=== PATIENT | female | born 1945 | race Caucasian/White ===

== ENCOUNTER 2019-02-19 22:39 | Inpatient (IN) | payer MEDICARE, OTHER, BC ==
[2019-02-19] MEDS ORDERED: Zofran 4 MG/2 ML VIAL IV ONE (22:53)
[2019-02-19] MEDS ORDERED: Sodium Chloride 0.9% 1000 ML 1,000 ML IV STA (22:53)
[2019-02-19] MEDS ORDERED: Zofran 4 MG/2 ML VIAL ONE (23:03)
[2019-02-19] MEDS ORDERED: Sodium Chloride 0.9% 1000 ML 1,000 ML ONE (23:03)
[2019-02-19 23:24] LABS: BASOPHIL % 0.2 % (0.0-0.4); Basophil (Absolute #) 0.02 (0-0.4); Eosinophil % 0.4 % (0.00-5.0); Eosinophil (Absolute #) 0.03 (0-0.5); Granulocyte Absolute (ANC) 6.91 (1.4-6.9); Granulocytes % 83.4 % (36.0-66.0); Hematocrit 45.5 % (35-47); Hemoglobin 15.2 gm/dl (12.0-16.0); Lymphocyte (Absolute #) 0.89 (1.0-4.6); Lymphocytes % 10.7 % (24.0-44.0); Mean Cell Volume 89.9 fl (78-100); Mean Corpuscular Hgb Concent. 33.4 g/dl (32-36); Mean Platelet Volume 9.4 fl (6-9.5); Monocyte (Absolute #) 0.44 (0.0-1.3); Monocytes % 5.3 % (0.0-12.0); Platelet Count 224 K/mm3 (150-450); Red Blood Count 5.06 M/mm3 (4.1-5.4); Red Cell Distribution Width 13.7 % (11.5-14.0); White Blood Count 8.3 K/mm3 (4.0-10.5)
[2019-02-19 23:35] LABS: ALBUMIN 4.2 g/dL (3.5-5.0); ANION GAP 14.4 MEQ/L (5-15); BILIRUBIN,TOTAL 0.5 mg/dL (0.2-1.3); Calcium 10.3 mg/dL (8.4-10.2); Creatinine 1 1.57 mg/dL (0.52-1.04); Potassium 4.2 mmol/L (3.5-5.1); Total Protein 7.2 g/dL (6.3-8.2)
[2019-02-20 01:13] LABS: Appearance CLEAR (CLEAR); Bilirubin NEGATIVE (NEGATIVE); Blood NEGATIVE Ery/ul (0-5); Epithelial Cells RARE /HPF (FEW); Glucose NEGATIVE (NEGATIVE); Ketones NEGATIVE (NEGATIVE); Leukocyte Esterase NEGATIVE (NEGATIVE); Nitrite NEGATIVE (NEGATIVE); Protein,Urine Dip NEGATIVE (Negative); RBC 0-2 /HPF (0-2); Specific Gravity 1.011 (1.005-1.025); Urobilinogen NEGATIVE mg/dL (0-1)
--- NOTE | 2019-02-20 04:27 | ERPHSYRPT ---
- History of Present Illness Historian: patient Exam Limitations: no limitations Patient Subjective Stated Complaint: pt c/o nausea and vomiting since 6-7pm this evening after eating roast beef and potatoes for dinner. vomit x 2. Triage Nursing Assessment: [place]/warm/dry, resp easy, a&ox4, gait not observed, pt has soft distension in abd in a hernia like fashion that pt states she "doesn 't know if it is a hernia, it has been there since my gallbladder surgery that they messed up but i feel like it has gotten bigger" Physician History: Pt is a 73 y/o female that presented to the Ed with N/V, and abdominal discomfort. Pt did have a BM in the AM prior to presentation, but she had many episodes of vomiting since. Pt denies F/C/S. No SOB or cough. No dysuria, frequency and urgency. Timing/Duration: today Activities at Onset: none Quality: aching Abdominal Pain Onset Location: periumbilical Pain Radiation: no radiation Severity of Pain-Max: moderate Severity of Pain-Current: mild Modifying Factors: Improves With: nothing Associated Symptoms: nausea, vomiting Previous symptoms: no prior history Allergies/Adverse Reactions: Sulfa (Sulfonamide Antibiotics) Allergy (Verified 02/19/19 22:42) varicella-zoster immune globulin (h [varicella-zoster immune glob] Adverse Reaction (Intermediate, Verified 02/19/19 22:42) rash and sore bones Home Medications: Omeprazole 40 mg PO BID 09/28/14 [History] Pravastatin Sodium 40 mg PO DAILY 09/28/14 [History] Docusate Sodium 100 mg PO DAILY 02/19/19 [History] Magnesium Oxide 400 mg PO DAILY 02/19/19 [History] Solifenacin Succinate 10 mg PO DAILY 02/19/19 [History] Spironolactone 25 mg PO DAILY 02/19/19 [History] Hx Tetanus, Diphtheria Vaccination/Date Given: Yes Hx Influenza Vaccination/Date Given: Yes Hx Pneumococcal Vaccination/Date Given: Yes Immunizations Up to Date: Yes - Review of Systems Constitutional: No Fever, No Chills Eyes: No Symptoms Ears, Nose, & Throat: No Symptoms Respiratory: No Cough, No Dyspnea Cardiac: No Chest Pain, No Edema, No Syncope Abdominal/Gastrointestinal: Abdominal Pain, Nausea, Vomiting Genitourinary Symptoms: No Dysuria Musculoskeletal: No Back Pain, No Neck Pain Neurological: No Dizziness, No Focal Weakness, No Sensory Changes - Past Medical History Pertinent Past Medical History: Yes Neurological History: Migraines ENT History: No Pertinent History Cardiac History: High Cholesterol, Hypertension Respiratory History: Bronchitis Endocrine Medical History: No Pertinent History Musculoskeletal History: No Pertinent History GI Medical History: GERD, Gallbladder Disease History: Renal Disease Psycho-Social History: No Pertinent History Female Reproductive Disorders: Fibroids - Past Surgical History Past Surgical History: Yes Neuro Surgical History: No Pertinent History Cardiac: No Pertinent History Respiratory: No Pertinent History Gastrointestinal: Cholecystectomy Genitourinary: No Pertinent History Musculoskeletal: No Pertinent History Female Surgical History: Hysterectomy - Social History Smoking Status: Never smoker Exposure to second hand smoke: No Drug Use: none Patient Lives Alone: Yes - Female History Hx Now: No - Nursing Vital Signs Nursing Vital Signs: Initial Vital Signs Temperature 97.9 F 02/19/19 22:42 Pulse Rate 68 02/19/19 22:42 Respiratory Rate 18 02/19/19 22:42 Blood Pressure 184/85 02/19/19 22:42 O2 Sat by Pulse Oximetry 93 L 02/19/19 22:42 Pain Scale Pain Intensity 4 - Physical Exam General Appearance: mild distress Eye Exam: PERRL/EOMI, eyes nml inspection Ears, Nose, Throat Exam: normal ENT inspection, pharynx normal, moist mucous membranes Neck Exam: normal inspection, non-tender, supple, full range of motion Respiratory Exam: normal breath sounds, lungs clear, No respiratory distress Cardiovascular Exam: regular rate/rhythm, normal heart sounds Gastrointestinal/Abdomen Exam: soft, tenderness, hernia (ventral) Back Exam: normal inspection, normal range of motion, No CVA tenderness, No vertebral tenderness Extremity Exam: normal inspection, normal range of motion, pelvis stable Neurologic Exam: alert, oriented x 3, cooperative, normal mood/affect, nml cerebellar function, sensation nml, No motor deficits SpO2: 97 - CT Exams Abdomen/Pelvis CT Interpretation: Tele-radiologist Report (proximal small bowel obstruction secondary to a ventral abdominal wall hernia containing a segment of dilated jejunum with small amount of adjacent fluid. ) Ordered Tests: Active Orders 24 hr Category Date Time Status ABDOMEN AND PELVIS W/0 CONTRAS [CT] Stat Exams 02/20/19 02:35 Taken CBC W DIFF Stat Lab 02/19/19 23:22 Completed CMP Stat Lab 02/19/19 23:22 Completed Urinalysis with Microscopy Stat Lab 02/19/19 23:40 Completed Medication Summary Discontinued Medications Generic Name Dose Route Start Last Admin Trade Name Meryl PRN Reason Stop Dose Admin Sodium Chloride 1,000 mls @ 999 mls/hr 02/19/19 22:53 02/19/19 23:04 Sodium Chloride 0.9% 1000 Ml IV 02/19/19 23:53 999 mls/hr .Q1H1M STA Administration Sodium Chloride Confirm 02/19/19 23:03 Sodium Chloride 0.9% 1000 Ml Administered 02/19/19 23:04 Dose 1,000 mls @ ud .ROUTE .STK-MED ONE Ondansetron HCl 4 mg 02/19/19 22:53 02/19/19 23:04 Zofran 4 Mg/2 Ml Vial IV 02/19/19 22:54 4 mg STAT ONE Administration Ondansetron HCl Confirm 02/19/19 23:03 Zofran 4 Mg/2 Ml Vial Administered 02/19/19 23:04 Dose 4 mg .ROUTE .STK-MED ONE Lab/Rad Data: Laboratory Result Diagrams 02/19/19 23:22 02/19/19 23:22 Laboratory Results 02/19/19 02/19/19 02/19/19 Range/Units 23:40 23:22 23:22 WBC 8.3 (4.0-10.5) K/mm3 RBC 5.06 (4.1-5.4) M/mm3 Hgb 15.2 (12.0-16.0) gm/dl Hct 45.5 (35-47) % MCV 89.9 (78-100) fl MCH 30.0 (26-32) pg MCHC 33.4 (32-36) g/dl RDW 13.7 (11.5-14.0) % Plt Count 224 (150-450) K/mm3 MPV 9.4 (6-9.5) fl Gran % 83.4 H (36.0-66.0) % Eos # (Auto) 0.03 (0-0.5) Absolute Lymphs (auto) 0.89 L (1.0-4.6) Absolute Monos (auto) 0.44 (0.0-1.3) Lymphocytes % 10.7 L (24.0-44.0) % Monocytes % 5.3 (0.0-12.0) % Eosinophils % 0.4 (0.00-5.0) % Basophils % 0.2 (0.0-0.4) % Absolute Granulocytes 6.91 H (1.4-6.9) Basophils # 0.02 (0-0.4) Sodium 142 (137-145) mmol/L Potassium 4.2 (3.5-5.1) mmol/L Chloride 104 (98-107) mmol/L Carbon Dioxide 27 (22-30) mmol/L Anion Gap 14.4 (5-15) MEQ/L BUN 21 H (7-17) mg/dL Creatinine 1.57 H (0.52-1.04) mg/dL Estimated GFR 34.4 ML/MIN Glucose 154 H (74-106) mg/dL Calcium 10.3 H (8.4-10.2) mg/dL Total Bilirubin 0.50 (0.2-1.3) mg/dL AST 32 (14-36) U/L ALT 49 H (0-35) U/L Alkaline Phosphatase 87 (38-126) U/L Serum Total Protein 7.2 (6.3-8.2) g/dL Albumin 4.2 (3.5-5.0) g/dL Urine Color YELLOW (YELLOW) Urine Appearance CLEAR (CLEAR) Urine pH 8.0 (5-6) Ur Specific [place] 1.011 (1.005-1.025) Urine Protein NEGATIVE (Negative) Urine Ketones NEGATIVE (NEGATIVE) Urine Blood NEGATIVE (0-5) Stan/ul Urine Nitrite NEGATIVE (NEGATIVE) Urine Bilirubin NEGATIVE (NEGATIVE) Urine Urobilinogen NEGATIVE (0-1) mg/dL Ur Leukocyte Esterase NEGATIVE (NEGATIVE) Urine WBC (Auto) NONE (0-5) /HPF Urine RBC (Auto) 0-2 (0-2) /HPF U Epithel Cells (Auto) RARE (FEW) /HPF Urine Bacteria (Auto) NONE (NEGATIVE) /HPF Urine Glucose NEGATIVE (NEGATIVE) mg/dL - Progress Progress: improved Progress Note: 02/20/19 04:25 Pt was seen and examined. Labs were done and the only abnormality was elevated sCr, that is secondary to CKD. No leukocytosis. Secondary to pt's discomfort a CT was done, that showed SBO. Dr Hernandez was contacted, and he asked for NG placement and he will see the pt in consult. Dr Bassett accepted the pt for admission. Will see patient in: hospital (full admit) Counseled pt/family regarding: lab results, diagnosis, rad results - Departure Departure Disposition: In-patient Admission Clinical Impression: SBO (small bowel obstruction) Condition: Stable Critical Care Time: No Referrals: BANDAR CATHERINE [Primary Care Provider] - Additional Instructions: Pt will be admitted by Dr Bassett. Dr Hernandez will be consulted. NG tube will be placed.
[2019-02-20] MEDS ORDERED: DILAUDID 2 MG INJECTION IV PRN (04:28)
[2019-02-20] MEDS: Sodium Chloride 0.9% 1000 ML 1,000 ML IV SCH ×2 (05:52→16:22)
--- NOTE | 2019-02-20 08:26 | HP ---
ADMITTED: 02/20/2019 CHIEF COMPLAINT: Abdominal pain, nausea, and vomiting. HISTORY OF PRESENT ILLNESS: The patient is a 73 y/o WF who presents for the above complaints. She reports that she had been fine until she had her evening meal after which she became distended and felt terrible. Began having abdominal pain and nausea and vomiting. The patient presented to the ER and was found to have small bowel obstruction. PAST MEDICAL HISTORY: Significant for a cholecystectomy. Apparently, during the surgery, they compromised the artery and she needed to be opened up to be repaired. The patient now has a large incisional hernia which apparently there are small bowel loops in. The patient otherwise reports renal failure for which she sees a painting technician. She has otherwise issues with hypertension, hyperlipidemia, gastroesophageal reflux disease. She has had a hysterectomy. HOME MEDICATIONS: She has home medications of omeprazole 40 mg q d, pravastatin 40 mg q d, docusate sodium, magnesium, solifenacin 10 mg daily, and spironolactone 25 mg q d. ALLERGIES: HER STATED ALLERGIES ARE TO SULFA AND VARICELLA GLOBULIN REACTION. PHYSICAL EXAMINATION: The patient's vital signs on admission showed a temperature of 97.9, pulse 68, respiratory rate 18, BP 184/85 with an O2 saturation of 93%. HEENT: Normocephalic and atraumatic. Pupils equal, round, and reactive to light. EOM intact. Oropharynx was pink and moist. NECK: Patient currently has an NG tube placed to gravity. CHEST: Clear to auscultation. HEART: Regular rate and rhythm. ABDOMEN: Shows a large hernia. It is soft. No palpable masses otherwise are felt. EXTREMITIES: Without cyanosis, clubbing, or edema. NEURO: The patient is alert and oriented X 3. LABORATORY STUDIES: Showed a UA which was normal. Metabolic panel shows sugar 154, BUN 21, creatinine 1.57. Electrolytes are normal. Liver enzymes are essentially normal as well other than slightly elevated SGPT of 49. CBC is normal with a Hgb of 15.2 and platelet count of 224,000. CT scan shows small bowel obstruction secondary to ventral abdominal hernia containing a segment of dilated jejunum with small amount of adjacent fluid. Hernia sac also contains transverse colon. ASSESSMENT: 1. PATIENT HAS SMALL BOWEL OBSTRUCTION DUE TO THE HERNIA. NG tube has been placed. She is on IV fluids and she will have a surgical consultation. We have held her medication and placed her on IV Protonix 40 mg daily.
[2019-02-20] MEDS: PROTONIX 40 MG IV IV SCH (09:04)
--- NOTE | 2019-02-20 09:34 | XRAY ---
Indication: Nausea and vomiting. Multiple contiguous axial images obtained through the abdomen and pelvis without contrast as ordered. Comparison: None Lung bases demonstrates a few calcified granulomas and minimal fibrosis/scarring. No infiltrate or effusion. Heart is not enlarged. Small fluid-filled hiatal hernia. Stomach is moderately fluid distended. There is a moderate-sized midline supraumbilical ventral hernia at least 5 cm in diameter with herniated jejunal bowel loop and transverse colon. Herniated small bowel loop is moderately fluid distended up to 3.8 cm as is the small bowel loop proximal to the hernia concerning for partial obstruction. Ventral hernia also demonstrates tiny free fluid. No walled off fluid collection or free air. Smaller fatty midline ventral hernia seen just inferior to this. Diffuse scattered colonic diverticulosis. Previous cholecystectomy and hysterectomy. 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 Mild diffuse fatty liver. Remaining liver, pancreas, spleen, adrenal glands, left kidney, ureters, and bladder appear unremarkable for noncontrast exam. Mild scattered aortoiliac calcifications without AAA. Osseous structures intact with mild degenerative changes throughout the thoracolumbar spine. Impression: 1. Midline supraumbilical ventral hernia with herniated bowel loops and subsequent partial obstruction as detailed. Additional smaller fatty ventral hernia. 2. Incidental diffuse colonic diverticulosis, small hiatal hernia, fatty liver, right renal angiomyolipoma, and evidence for old granulomatous disease. Comment: Preliminary interpretation was made by [facility]. No critical discrepancy. CTDI 22.67
[2019-02-20] MEDS: Zofran 4 MG/2 ML VIAL IV PRN ×2 (16:28→22:57)
[2019-02-20] MEDS ORDERED: Lasix 40 MG/4 ML IV ONE (20:15)
[2019-02-20] MEDS ORDERED: APRESOLINE 20 MG/ML INJ IV ONE (22:25)
[2019-02-20] MEDS ORDERED: APRESOLINE 20 MG/ML INJ ONE (22:34)
[2019-02-21] MEDS: Sodium Chloride 0.9% 1000 ML 1,000 ML IV SCH (02:35)
[2019-02-21 05:57] LABS: BASOPHIL % 0.1 % (0.0-0.4); Basophil (Absolute #) 0.01 (0-0.4); Eosinophil % 0.1 % (0.00-5.0); Eosinophil (Absolute #) 0.01 (0-0.5); Granulocyte Absolute (ANC) 6.17 (1.4-6.9); Granulocytes % 77.7 % (36.0-66.0); Hematocrit 43.6 % (35-47); Hemoglobin 14.2 gm/dl (12.0-16.0); Lymphocyte (Absolute #) 1.11 (1.0-4.6); Mean Cell Volume 91.2 fl (78-100); Mean Corpuscular Hemoglobin 29.7 pg (26-32); Mean Corpuscular Hgb Concent. 32.6 g/dl (32-36); Monocyte (Absolute #) 0.64 (0.0-1.3); Monocytes % 8.1 % (0.0-12.0); Platelet Count 209 K/mm3 (150-450); Red Blood Count 4.78 M/mm3 (4.1-5.4); Red Cell Distribution Width 13.9 % (11.5-14.0); White Blood Count 7.9 K/mm3 (4.0-10.5)
[2019-02-21 06:05] LABS: INR 1.12 (0.8-3.0); PROTIME 12.7 SECONDS (9.95-12.35)
[2019-02-21 06:10] LABS: ALBUMIN 3.8 g/dL (3.5-5.0); BILIRUBIN,TOTAL 0.6 mg/dL (0.2-1.3); Calcium 9.1 mg/dL (8.4-10.2); Creatinine 1 1.21 mg/dL (0.52-1.04); Potassium 3.8 mmol/L (3.5-5.1); Total Protein 6.5 g/dL (6.3-8.2)
[2019-02-21] MEDS: PROTONIX 40 MG IV IV SCH (10:55)
--- NOTE | 2019-02-21 21:32 | PCM.HP ---
History of Present Illness - Chief Complaint Chief Complaint: abdominal diane History of Present Illness: is a 73 year old female with HTN,Hypercholesterolemia and GERD who presented to the ER with abdominal pain vomiting and diarrhea which started after eating evening meal roast and potatoes.She is S/P cholecystectomy and hysterectomy for fibroids and has an upper abdominal incisional hernia.She denies fever.See ER work up and General Surgery consult. NGT placed. - Review of Systems Constitutional: No Fever, No Chills Eyes: No Symptoms Ears, Nose, & Throat: No Symptoms Respiratory: No Cough, No Short Of Breath Cardiac: Other (, She takes Spironalactone for HTN and a cholesterol med), No Chest Pain, No Edema, No Syncope Abdominal/Gastrointestinal: Other (see HPI) Genitourinary Symptoms: Other (is on Vesicare for urine incontinence) Medications & Allergies Home Medications: Home Medication List Omeprazole 40 mg PO BID 09/28/14 [History Confirmed 02/19/19] Pravastatin Sodium 40 mg PO DAILY 09/28/14 [History Confirmed 02/19/19] Docusate Sodium 100 mg PO DAILY 02/19/19 [History Confirmed 02/19/19] Magnesium Oxide 400 mg PO DAILY 02/19/19 [History Confirmed 02/19/19] Solifenacin Succinate 10 mg PO DAILY 02/19/19 [History Confirmed 02/19/19] Spironolactone 25 mg PO DAILY 02/19/19 [History Confirmed 02/19/19] Ergocalciferol (Vitamin D2) [Vitamin D2] 50,000 unit PO Q7D 02/20/19 [History Confirmed 02/20/19] Allergies/Adverse Reactions: Allergies Allergy/AdvReac Type Severity Reaction Status Date / Time Sulfa (Sulfonamide Allergy Verified 02/19/19 22:42 Antibiotics) varicella-zoster immune AdvReac Intermediate Verified 02/19/19 22:42 globulin (h [varicella-zoster immune glob] - Past Medical History Past Medical History: Yes Neurological History: Migraines ENT History: No Pertinent History Cardiac History: High Cholesterol, Hypertension Respiratory History: Bronchitis, Other (nonsmoker) Endocrine Medical History: No Pertinent History Musculoskelatal History: No Pertinent History GI Medical History: GERD, Gallbladder Disease History: Renal Disease Pyscho-Social History: No Pertinent History Reproductive Disorders: Fibroids, Other (S/P hysterectomy) - Female History Are you now?: No - Past Surgical History Past Surgical History: Yes Neuro Surgical History: No Pertinent History Cardiac History: No Pertinent History Respiratory Surgery: No Pertinent History GI Surgical History: Cholecystectomy Genitourinary Surgical Hx: No Pertinent History Musculskeletal Surgical Hx: No Pertinent History Female Surgical History: Hysterectomy - Social History Smoking Status: Never smoker Exposure to second hand smoke: Yes Alcohol: None Drug Use: none - Physical Exam Vital Signs: Vital Signs - 24 hr Temp Pulse Resp BP Pulse Ox 02/21/19 19:53 97.4 F 56 L 18 135/63 95 02/21/19 16:00 97.8 F 54 L 18 131/57 91 L 02/21/19 11:59 97.8 F 55 L 18 118/66 88 L 02/21/19 06:54 98.2 F 52 L 20 124/60 90 L 02/21/19 04:00 98.2 F 63 18 140/65 90 L 02/20/19 23:37 97.8 F 79 18 146/63 91 L General Appearance: mild distress, other (abdominal discomfort) Neurologic Exam: alert, oriented x 3, cooperative, 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 II-XII nml as tested Eye Exam: PERRL/EOMI Ears, Nose, Throat Exam: normal ENT inspection Neck Exam: normal inspection Respiratory Exam: normal breath sounds Cardiovascular Exam: other (regular,rate 55) Gastrointestinal/Abdomen Exam: distention, hernia, other (upper abdominal hernia tender) Pelvic Exam: not done Rectal Exam: deferred, not done Back Exam: other (no CVA tenderness) Extremity Exam: normal inspection, normal range of motion, other (trace ankle edema) Skin Exam: normal color, warm, dry, No rash Results - Labs Lab/Micro Results: Lab Results-Last 24 Hours 02/21/19 02/21/19 02/21/19 Range/Units 05:50 05:50 05:50 WBC 7.9 (4.0-10.5) K/mm3 RBC 4.78 (4.1-5.4) M/mm3 Hgb 14.2 (12.0-16.0) gm/dl Hct 43.6 (35-47) % MCV 91.2 (78-100) fl MCH 29.7 (26-32) pg MCHC 32.6 (32-36) g/dl RDW 13.9 (11.5-14.0) % Plt Count 209 (150-450) K/mm3 MPV 9.0 (6-9.5) fl Gran % 77.7 H (36.0-66.0) % Eos # (Auto) 0.01 (0-0.5) Absolute Lymphs (auto) 1.11 (1.0-4.6) Absolute Monos (auto) 0.64 (0.0-1.3) Lymphocytes % 14.0 L (24.0-44.0) % Monocytes % 8.1 (0.0-12.0) % Eosinophils % 0.1 (0.00-5.0) % Basophils % 0.1 (0.0-0.4) % Absolute Granulocytes 6.17 (1.4-6.9) Basophils # 0.01 (0-0.4) PT 12.7 H (9.95-12.35) SECONDS INR 1.12 (0.8-3.0) Sodium 142 (137-145) mmol/L Potassium 3.8 (3.5-5.1) mmol/L Chloride 108 H (98-107) mmol/L Carbon Dioxide 24 (22-30) mmol/L Anion Gap 14.0 (5-15) MEQ/L BUN 19 H (7-17) mg/dL Creatinine 1.21 H (0.52-1.04) mg/dL Estimated GFR 46.5 ML/MIN Glucose 107 H (74-106) mg/dL Lactic Acid (0.4-2.0) Calcium 9.1 (8.4-10.2) mg/dL Total Bilirubin 0.60 (0.2-1.3) mg/dL AST 25 (14-36) U/L ALT 38 H (0-35) U/L Alkaline Phosphatase 77 (38-126) U/L Serum Total Protein 6.5 (6.3-8.2) g/dL Albumin 3.8 (3.5-5.0) g/dL 02/21/19 Range/Units 06:00 WBC (4.0-10.5) K/mm3 RBC (4.1-5.4) M/mm3 Hgb (12.0-16.0) gm/dl Hct (35-47) % MCV (78-100) fl MCH (26-32) pg MCHC (32-36) g/dl RDW (11.5-14.0) % Plt Count (150-450) K/mm3 MPV (6-9.5) fl Gran % (36.0-66.0) % Eos # (Auto) (0-0.5) Absolute Lymphs (auto) (1.0-4.6) Absolute Monos (auto) (0.0-1.3) Lymphocytes % (24.0-44.0) % Monocytes % (0.0-12.0) % Eosinophils % (0.00-5.0) % Basophils % (0.0-0.4) % Absolute Granulocytes (1.4-6.9) Basophils # (0-0.4) PT (9.95-12.35) SECONDS INR (0.8-3.0) Sodium (137-145) mmol/L Potassium (3.5-5.1) mmol/L Chloride (98-107) mmol/L Carbon Dioxide (22-30) mmol/L Anion Gap (5-15) MEQ/L BUN (7-17) mg/dL Creatinine (0.52-1.04) mg/dL Estimated GFR ML/MIN Glucose (74-106) mg/dL Lactic Acid 1.1 (0.4-2.0) Calcium (8.4-10.2) mg/dL Total Bilirubin (0.2-1.3) mg/dL AST (14-36) U/L ALT (0-35) U/L Alkaline Phosphatase (38-126) U/L Serum Total Protein (6.3-8.2) g/dL Albumin (3.5-5.0) g/dL - Radiology Impressions Radiology Exams & Impressions: Radiology Procedures Category Date Time Status ABDOMEN AND PELVIS W/0 CONTRAS [CT] Stat Exams 02/20/19 02:35 Completed Assessment/Plan (1) SBO (small bowel obstruction) Current Visit: Yes Status: Acute Assessment & Plan: orders per General Surgeon Dr Branden Hernandez,feels with bowel rest it should resolve. Code(s): K56.609 - UNSP INTESTNL OBST, UNSP TO PARTIAL VERSUS COMPLETE OBST (2) Hypertension Current Visit: Yes Status: Acute Qualifiers: Hypertension type: essential hypertension Qualified Code(s): I10 - Essential (primary) hypertension Assessment & Plan: is receiving IV NS and is off oral meds. One time dose IV Lasix,moniter. Code(s): I10 - ESSENTIAL (PRIMARY) HYPERTENSION
[2019-02-22 06:13] LABS: BASOPHIL % 0.4 % (0.0-0.4); Basophil (Absolute #) 0.02 (0-0.4); Eosinophil % 2.4 % (0.00-5.0); Eosinophil (Absolute #) 0.13 (0-0.5); Granulocyte Absolute (ANC) 3.25 (1.4-6.9); Granulocytes % 59.4 % (36.0-66.0); Hematocrit 40.7 % (35-47); Hemoglobin 13.4 gm/dl (12.0-16.0); Lymphocyte (Absolute #) 1.45 (1.0-4.6); Lymphocytes % 26.6 % (24.0-44.0); Mean Cell Volume 90.8 fl (78-100); Mean Corpuscular Hemoglobin 29.9 pg (26-32); Mean Corpuscular Hgb Concent. 32.9 g/dl (32-36); Mean Platelet Volume 9.6 fl (6-9.5); Monocyte (Absolute #) 0.61 (0.0-1.3); Monocytes % 11.2 % (0.0-12.0); Platelet Count 178 K/mm3 (150-450); Red Blood Count 4.48 M/mm3 (4.1-5.4); Red Cell Distribution Width 13.7 % (11.5-14.0); White Blood Count 5.5 K/mm3 (4.0-10.5)
[2019-02-22 06:31] LABS: ALBUMIN 3.5 g/dL (3.5-5.0); ANION GAP 15.6 MEQ/L (5-15); BILIRUBIN,TOTAL 0.9 mg/dL (0.2-1.3); Calcium 9.1 mg/dL (8.4-10.2); Creatinine 1 1.21 mg/dL (0.52-1.04); Potassium 3.6 mmol/L (3.5-5.1); Total Protein 6.2 g/dL (6.3-8.2)
[2019-02-22] MEDS: PROTONIX 40 MG IV IV SCH (11:03)
[2019-02-22] MEDS ORDERED: Aldactone 25 MG PO SCH (15:00)
[2019-02-22] MEDS: MAG-OX 400 PO SCH (16:28)
[2019-02-22] MEDS: SENOKOT 8.6 MG PO SCH ×2 (16:29→21:31)
[2019-02-22] MEDS: Protonix 40MG Tablet PO SCH (16:29)
--- NOTE | 2019-02-22 19:01 | PCM.NOTE ---
Date and Time: 02/22/191855 Subjective Assessment: Patient has improved with SBO symtoms. Dr Hernandez had ordered her NGT removed yesterday and she started eating ice chips and has advanced to full liquids and is ready to try a regular diet. She has had small amount of stool passed today and has been up with nursing staff walking short distances. No N/V or abdominal pain today. - Review of Systems Cardiac: Other (patient states she has been to;d she has a low heart rate in the past but has not had testing or seen a Purchasing Department Clerk.She atate when she goes to the grocery lately she becomes very tired.Denies chest pain or palpitations.) Objective Exam General Appearance: no apparent distress, alert Neurologic Exam: alert, oriented x 3, normal mood/affect Respiratory Exam: diminished breath sounds (fine eew left mid improvedwith deep breathing and cough) Cardiovascular Exam: other (regular with rate 57, Note heart rate per vitals page was 47 through the night and days staying in the mid 50s) Gastrointestinal/Abdomen Exam: soft, normal bowel sounds, hernia OBJECTIVE DATA Vital Signs: Vital Signs - 24 hr Temp Pulse Resp BP Pulse Ox 02/22/19 16:00 97.5 F 57 L 17 152/63 93 L 02/22/19 12:00 97.6 F 53 L 18 172/72 95 02/22/19 07:28 98.0 F 46 L 18 115/60 94 L 02/22/19 04:00 97.6 F 50 L 18 136/64 94 L 02/21/19 23:46 97.6 F 54 L 18 125/59 96 02/21/19 19:53 97.4 F 56 L 18 135/63 95 Pain Assessment - Last Documented Pain Intensity 5 Pain Scale Used 0-10 Pain Scale Intake and Output: Intake & Output 02/20/19 02/21/19 02/22/19 02/23/19 11:59 11:59 11:59 11:59 Intake Total 1174 2480 600 Output Total 2030 450 Balance -856 2029 600 Weight 91.5 kg Lab Results: Lab Results-Last 24 Hours 02/22/19 02/22/19 Range/Units 05:35 05:35 WBC 5.5 (4.0-10.5) K/mm3 RBC 4.48 (4.1-5.4) M/mm3 Hgb 13.4 (12.0-16.0) gm/dl Hct 40.7 (35-47) % MCV 90.8 (78-100) fl MCH 29.9 (26-32) pg MCHC 32.9 (32-36) g/dl RDW 13.7 (11.5-14.0) % Plt Count 178 (150-450) K/mm3 MPV 9.6 H (6-9.5) fl Gran % 59.4 (36.0-66.0) % Eos # (Auto) 0.13 (0-0.5) Absolute Lymphs (auto) 1.45 (1.0-4.6) Absolute Monos (auto) 0.61 (0.0-1.3) Lymphocytes % 26.6 (24.0-44.0) % Monocytes % 11.2 (0.0-12.0) % Eosinophils % 2.4 (0.00-5.0) % Basophils % 0.4 (0.0-0.4) % Absolute Granulocytes 3.25 (1.4-6.9) Basophils # 0.02 (0-0.4) Sodium 143 (137-145) mmol/L Potassium 3.6 (3.5-5.1) mmol/L Chloride 108 H (98-107) mmol/L Carbon Dioxide 23 (22-30) mmol/L Anion Gap 15.6 H (5-15) MEQ/L BUN 19 H (7-17) mg/dL Creatinine 1.21 H (0.52-1.04) mg/dL Estimated GFR 46.5 ML/MIN Glucose 90 (74-106) mg/dL Calcium 9.1 (8.4-10.2) mg/dL Total Bilirubin 0.90 (0.2-1.3) mg/dL AST 25 (14-36) U/L ALT 33 (0-35) U/L Alkaline Phosphatase 72 (38-126) U/L Serum Total Protein 6.2 L (6.3-8.2) g/dL Albumin 3.5 (3.5-5.0) g/dL Radiology Exams: Radiology Procedures Category Date Time Status CHEST 2 VIEWS (PA AND LAT) Routine Exams 02/22/19 15:37 Taken Assessment/Plan (1) SBO (small bowel obstruction) Current Visit: Yes Status: Acute Assessment & Plan: is resolving,Dr Hernandez Gen Surgeon will see her in 2 weeks. Code(s): K56.609 - UNSP INTESTNL OBST, UNSP TO PARTIAL VERSUS COMPLETE OBST (2) Bradycardia Current Visit: Yes Status: Acute Assessment & Plan: EKG,telemetry,CXR,oernight ox and with ambulation Code(s): R00.1 - BRADYCARDIA, UNSPECIFIED (3) Physical deconditioning Current Visit: Yes Status: Acute Assessment & Plan: will need PT to eval and treat. Code(s): R53.81 - OTHER MALAISE
[2019-02-22 20:26] LABS: FREE TRIODOTHYRONINE 2.97 pg/mL (2.77-5.27); MAGNESIUM 1.9 mg/dL (1.6-2.3); TSH, 3RD Generation 3.21 mIU/L (0.47-4.68)
--- NOTE | 2019-02-22 21:11 | XRAY ---
Indication: Short of breath. Hypertension. Comparison: December 10, 2016. PA/lateral chest obtained. PA view degraded by respiration artifact. Lungs hyperinflated and clear again with a few incidental calcified granulomas. Heart and mediastinal structures within normal limits. Bony thorax intact again with mild osteopenia and degenerative changes. Impression: Respiration artifact. Grossly stable nonacute chest again with chronic features. Comment: Preliminary interpretation was made by [facility]. No critical discrepancy.
[2019-02-22] MEDS: Sodium Chloride 0.9% 10 ML FLUSH Syringe IV SCH (22:19)
[2019-02-23] MEDS: Sodium Chloride 0.9% 10 ML FLUSH Syringe IV SCH ×3 (06:05→21:48)
--- NOTE | 2019-02-23 09:05 | PCM.NOTE ---
Date and Time: 02/23/19901 Subjective Assessment: Pt is britta regular diet. Has had several small amount of stool pass. Abdominal discomfort is nearly gone. - Review of Systems Constitutional: No Fever Abdominal/Gastrointestinal: No Vomiting Objective Exam General Appearance: no apparent distress, alert Neurologic Exam: oriented x 3, cooperative Skin Exam: normal color, warm, dry, No rash Respiratory Exam: normal breath sounds, lungs clear, No crackles/rales, No rhonchi, No wheezing Cardiovascular Exam: regular rate/rhythm, normal heart sounds, No murmur Gastrointestinal/Abdomen Exam: soft, normal bowel sounds, other (midline is well healed scar with some palpable hernia which is reducible), No tenderness, No guarding Extremity Exam: normal inspection, No pedal edema, No swelling Back Exam: normal inspection, No rash OBJECTIVE DATA Vital Signs: Vital Signs - 24 hr Temp Pulse Resp BP Pulse Ox 02/23/19 07:26 97.6 F 46 L 16 136/63 92 L 02/23/19 03:53 97.9 F 50 L 18 121/58 95 02/23/19 00:00 98.1 F 52 L 18 137/65 94 L 02/22/19 23:10 98.1 F 52 L 48 H 137/65 94 L 02/22/19 21:41 95 02/22/19 19:31 98.0 F 65 20 123/57 94 L 02/22/19 16:00 97.5 F 57 L 17 152/63 93 L 02/22/19 12:00 97.6 F 53 L 18 172/72 95 Pain Assessment - Last Documented Pain Intensity 0 Pain Scale Used 0-10 Pain Scale Intake and Output: Intake & Output 02/20/19 02/21/19 02/22/19 02/23/19 11:59 11:59 11:59 11:59 Intake Total 1174 2480 2520 Output Total 2030 450 Balance -856 2029 2520 Weight 91.5 kg Lab Results: Lab Results-Last 24 Hours 02/22/19 02/22/19 02/22/19 Range/Units 19:38 19:38 19:38 Magnesium 1.9 (1.6-2.3) mg/dL Troponin I < 0.012 (0.000-0.034) ng/mL Free T4 1.01 (0.76-1.46) ng/dL Free T3 pg/mL 2.97 (2.77-5.27) pg/mL TSH 3rd Generation 3.210 (0.47-4.68) mIU/L Radiology Exams: Radiology Procedures Category Date Time Status CHEST 2 VIEWS (PA AND LAT) Routine Exams 02/22/19 15:37 Completed Assessment/Plan (1) Physical deconditioning Current Visit: Yes Status: Acute Assessment & Plan: exacerbated by this hospital stay. Would like pt to stay in swing bed for rehab , likely starting tomorrow. Consulted PT today. Code(s): R53.81 - OTHER MALAISE (2) SBO (small bowel obstruction) Current Visit: Yes Status: Acute Assessment & Plan: Much improved, britta po, just small amount abd discomfort remains. Code(s): K56.609 - UNSP INTESTNL OBST, UNSP TO PARTIAL VERSUS COMPLETE OBST (3) Bradycardia Current Visit: Yes Status: Acute Assessment & Plan: some HR into the 40s which may be contributing to her fatigue. Cardiology consulted. Code(s): R00.1 - BRADYCARDIA, UNSPECIFIED (4) Hypertension Current Visit: Yes Status: Chronic Qualifiers: Hypertension type: essential hypertension Qualified Code(s): I10 - Essential (primary) hypertension Code(s): I10 - ESSENTIAL (PRIMARY) HYPERTENSION (5) Constipation Current Visit: Yes Status: Acute Qualifiers: Constipation type: slow transit constipation Qualified Code(s): K59.01 - Slow transit constipation Assessment & Plan: will add miralax to senna. Code(s): K59.00 - CONSTIPATION, UNSPECIFIED
[2019-02-23] MEDS: Protonix 40MG Tablet PO SCH (09:29)
[2019-02-23] MEDS: MAG-OX 400 PO SCH (09:29)
[2019-02-23] MEDS: SENOKOT 8.6 MG PO SCH ×2 (09:29→21:36)
[2019-02-23] MEDS: Miralax Powder 17GM PACKET PO SCH (09:29)
[2019-02-23] MEDS ORDERED: Aldactone 25 MG PO SCH (10:00)
[2019-02-24 07:49] VITALS: BP 124/72; PULSE 54; O2SAT 94
--- NOTE | 2019-02-24 09:07 | PCM.DS ---
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 Dr. Branden Hernandez was consulted but surgery was not needed. She has been tolerating po and passing small amounts of stool. On admission her CT abd/pelvis showed bowel herniation ventrally with SBO (also diverticulosis and fatty liver but nothing acute). CXR was nonacute. WBC were nl. eGFR on admission 34.4; improved to 46 after 2 days. Pt was noted to have bradycardia into the 40s during her stay. Cardiology was consulted and advised holter monitor; will do this in swing bed. Also advised sleep study; will be scheduled outpatient. Pt is starting physical therapy. Is weak from deconditioning. Will stay in swing bed for PT. - Vitals & Intake/Output Vital Signs: Vital Signs Temperature 98.5 F 02/24/19 07:47 Pulse Rate 54 L 02/24/19 07:47 Respiratory Rate 20 02/24/19 07:47 Blood Pressure 124/72 02/24/19 07:47 O2 Sat by Pulse Oximetry 94 L 02/24/19 07:47 Intake & Output: Intake & Output 02/21/19 02/22/19 02/23/19 02/24/19 11:59 11:59 11:59 11:59 Intake Total 1174 2480 2520 1640 Output Total 2030 450 400 Balance -856 2030 2520 1240 - Lab Result Diagrams: 02/22/19 05:35 02/22/19 05:35 - Radiology Exams Ordered Rad Exams-Entire Visit: Radiology Procedures Category Date Time Status CHEST 2 VIEWS (PA AND LAT) Routine Exams 02/22/19 15:37 Completed - Procedures and Test Procedures and Tests throughout Hospitalization: Therapy Orders & Screens 02/20/19 07:29 EKG ROUTINE Comment: Diagnosis: SBO 02/22/19 12:18 EKG STAT Comment: Diagnosis: abdominal diane 02/23/19 08:59 PT Eval & Treat (MD Order) ROUTINE Reason for Eval:: fatigue, deconditioning Diagnosis: abdominal diane Discharge Exam General Appearance: no apparent distress, alert Neurologic Exam: oriented x 3, cooperative Eye Exam: eyes nml inspection Ears, Nose, Throat Exam: moist mucous membranes Respiratory Exam: normal breath sounds, lungs clear, No crackles/rales, No rhonchi, No wheezing Cardiovascular Exam: regular rate/rhythm, normal heart sounds, No murmur Gastrointestinal/Abdomen Exam: soft, normal bowel sounds, tenderness (mild, epigastrum), mass (hernia palpable midline; soft), No distention, No guarding, No rebound Skin Exam: normal color, warm, dry, No rash Final Diagnosis/Problem List - Final Discharge Diagnosis/Problem (1) Physical deconditioning Current Visit: Yes Status: Acute Assessment & Plan: D/c from acute care and admit to swing bed today. Code(s): R53.81 - OTHER MALAISE (2) SBO (small bowel obstruction) Current Visit: Yes Status: Resolved Code(s): K56.609 - UNSP INTESTNL OBST, UNSP TO PARTIAL VERSUS COMPLETE OBST (3) Bradycardia Current Visit: Yes Status: Acute Assessment & Plan: holter monitor Code(s): R00.1 - BRADYCARDIA, UNSPECIFIED (4) Hypertension Current Visit: Yes Status: Chronic Assessment & Plan: stable Code(s): I10 - ESSENTIAL (PRIMARY) HYPERTENSION (5) Constipation Current Visit: Yes Status: Acute Assessment & Plan: continue miralax Code(s): K59.00 - CONSTIPATION, UNSPECIFIED - Discharge Disposition: Swing Bed @ [facility] Condition: Stable Prescriptions: No Action Pravastatin Sodium 40 mg PO DAILY Omeprazole 40 mg PO BID Solifenacin Succinate 10 mg PO DAILY Magnesium Oxide 400 mg PO DAILY Docusate Sodium 100 mg PO DAILY Spironolactone 25 mg PO DAILY Ergocalciferol (Vitamin D2) [Vitamin D2] 50,000 unit PO Q7D Follow up with: BANDAR CATHERINE [Primary Care Provider] - 1 Week Cristóbal Bee MD [CONSULTING PHYSICIAN] - 1 Week
[2019-02-24] MEDS: MAG-OX 400 PO SCH (09:22)
[2019-02-24] MEDS: Miralax Powder 17GM PACKET PO SCH (09:22)
[2019-02-24] MEDS: Protonix 40MG Tablet PO SCH (09:22)
[2019-02-24] MEDS: SENOKOT 8.6 MG PO SCH (09:22)
[2019-02-24] MEDS ORDERED: Aldactone 25 MG PO SCH (10:00)
== END 2019-02-24 10:30 | disposition swing bed (61) | DRG 389 ==
LOC: ED 22:39 → MED SURG 02-20 04:55
PROVIDERS: ADMIT Family Medicine; ATTEND Family Medicine
DX: K56.609 Unspecified intestinal obstruction, unspecified as to partial versus complete obstruction (principal); K43.6 Other and unspecified ventral hernia with obstruction, without gangrene; R10.33 Periumbilical pain; I10 Essential (primary) hypertension; E78.00 Pure hypercholesterolemia, unspecified; R42 Dizziness and giddiness; R00.1 Bradycardia, unspecified; R09.02 Hypoxemia; R53.83 Other fatigue; K21.9 Gastro-esophageal reflux disease without esophagitis; R32 Unspecified urinary incontinence; K57.30 Diverticulosis of large intestine without perforation or abscess without bleeding; K59.00 Constipation, unspecified; R73.9 Hyperglycemia, unspecified; Z79.899 Other long term (current) drug therapy
CPT/HCPCS: 36415; 71046; 74176; 80053; 81001; 83605; 83735; 84439; 84443; 84481; 84484; 85025; 85610; 93005; 94762; 96360; 96374; 97162; 99285; Q3014; J0360; J1170; J1940; J2405; A9270-GY

== ENCOUNTER 2019-02-24 10:30 | Inpatient (IN) | payer MEDICARE, OTHER, BC ==
[2019-02-24] MEDS ORDERED: Aplisol ID ONE (10:43)
[2019-02-24] MEDS ORDERED: Zofran 4 MG/2 ML VIAL IV PRN (10:43)
[2019-02-24] MEDS: Sodium Chloride 0.9% 10 ML FLUSH Syringe IV SCH ×2 (15:13→21:08)
[2019-02-24] MEDS ORDERED: SENOKOT 8.6 MG ONE (20:00)
[2019-02-24] MEDS: SENOKOT 8.6 MG PO SCH (21:08)
[2019-02-25] MEDS: Sodium Chloride 0.9% 10 ML FLUSH Syringe IV SCH ×3 (05:28→22:11)
[2019-02-25] MEDS: Protonix 40MG Tablet PO SCH (09:56)
[2019-02-25] MEDS: Aldactone 25 MG PO SCH (09:56)
[2019-02-25] MEDS: Miralax Powder 17GM PACKET PO SCH (09:56)
[2019-02-25] MEDS: MAG-OX 400 PO SCH (09:56)
[2019-02-25] MEDS: SENOKOT 8.6 MG PO SCH ×2 (09:57→22:10)
[2019-02-25] MEDS ORDERED: Aplisol ID SCH (10:00)
[2019-02-26] MEDS: Sodium Chloride 0.9% 10 ML FLUSH Syringe IV SCH ×3 (06:43→22:25)
[2019-02-26] MEDS: MAG-OX 400 PO SCH (09:08)
[2019-02-26] MEDS: Aldactone 25 MG PO SCH (09:08)
[2019-02-26] MEDS: Protonix 40MG Tablet PO SCH (09:08)
[2019-02-26] MEDS: SENOKOT 8.6 MG PO SCH ×2 (09:09→22:25)
[2019-02-26] MEDS: Miralax Powder 17GM PACKET PO SCH (09:09)
[2019-02-27] MEDS: Sodium Chloride 0.9% 10 ML FLUSH Syringe IV SCH ×3 (06:58→21:46)
[2019-02-27] MEDS: SENOKOT 8.6 MG PO SCH ×2 (09:14→21:45)
[2019-02-27] MEDS: Miralax Powder 17GM PACKET PO SCH (09:14)
[2019-02-27] MEDS: Protonix 40MG Tablet PO SCH (09:14)
[2019-02-27] MEDS: Aldactone 25 MG PO SCH (09:14)
[2019-02-27] MEDS: MAG-OX 400 PO SCH (09:14)
--- NOTE | 2019-02-27 09:25 | PCM.NOTE ---
Date and Time: 02/27/19922 Subjective Assessment: PT is doing therapy, she does have some dizziness in the morning or after exercising. Did PT twice yesterday! Jinny PO well. Would like her OP cardiology f/u to be in [place]. Objective Exam General Appearance: no apparent distress, alert, obese Neurologic Exam: oriented x 3, cooperative Skin Exam: normal color, warm, dry, No rash Ears, Nose, Throat Exam: moist mucous membranes Neck Exam: normal inspection Respiratory Exam: normal breath sounds, lungs clear, No crackles/rales, No rhonchi, No wheezing Cardiovascular Exam: regular rate/rhythm, normal heart sounds, No murmur Extremity Exam: normal inspection, No pedal edema, No swelling Back Exam: normal inspection, No rash OBJECTIVE DATA Vital Signs: Vital Signs - 24 hr Temp Pulse Resp BP Pulse Ox 02/27/19 08:00 97.7 F 101 H 18 124/59 95 02/26/19 20:00 97.8 F 57 L 18 158/65 96 Pain Assessment - Last Documented Pain Intensity 0 Pain Scale Used [facility] Intake and Output: Intake & Output 02/24/19 02/25/19 02/26/19 02/27/19 11:59 11:59 11:59 11:59 Intake Total 050 993 5695 Output Total 800 Balance 642 639 6332 Weight 91.1 kg Assessment/Plan (1) Physical deconditioning Current Visit: No Status: Acute Assessment & Plan: Will check with PT regarding her progress. Code(s): R53.81 - OTHER MALAISE (2) Bradycardia Current Visit: No Status: Acute Assessment & Plan: HR down to low of 48 since she has been in swing bed. Will have her f/u with Dr. Yang outpatient, in [place]. Code(s): R00.1 - BRADYCARDIA, UNSPECIFIED
--- NOTE | 2019-02-27 11:11 | HOLTER ---
PROCEDURE: Holter monitor report. REASON FOR EXAMINATION: Palpitations. DESCRIPTION OF PROCEDURE: The patient was in sinus bradycardia throughout the recording with average rate of 57 beats/minute. The maximum rate was 99 beats/minute and the minimum rate was 79 beats/minute at 0533 hours. There was one premature ventricular ectopy. No evidence of any ventricular tachyarrhythmia. There were rare premature atrial ectopies with one short atrial run that consisted of 4 beats at rate of 130 beats/minute. No evidence of any long pauses or blocks noted. IMPRESSION: 1) SINUS BRADYCARDIA WITH SUGGESTION OF CHRONOTROPIC INCOMPETENCE. 2) ONE PVC AND RARE PAC'S. 3) FOUR BEAT SLOW ATRIAL RUN NOTED.
[2019-02-28] MEDS: Aldactone 25 MG PO SCH (08:40)
[2019-02-28] MEDS: MAG-OX 400 PO SCH (08:40)
[2019-02-28] MEDS: Protonix 40MG Tablet PO SCH (08:40)
[2019-02-28] MEDS: SENOKOT 8.6 MG PO SCH ×2 (08:40→21:10)
[2019-02-28] MEDS: Miralax Powder 17GM PACKET PO SCH (08:41)
[2019-02-28] MEDS: Sodium Chloride 0.9% 10 ML FLUSH Syringe IV SCH (08:43)
[2019-03-01] MEDS: SENOKOT 8.6 MG PO SCH ×2 (10:30→21:43)
[2019-03-01] MEDS: Protonix 40MG Tablet PO SCH (11:03)
[2019-03-01] MEDS: Miralax Powder 17GM PACKET PO SCH (11:03)
[2019-03-01] MEDS: MAG-OX 400 PO SCH (11:03)
[2019-03-01] MEDS: Aldactone 25 MG PO SCH (11:03)
--- NOTE | 2019-03-02 08:37 | PCM.NOTE ---
Date and Time: 03/02/19831 Subjective Assessment: Pt had 4 BMs yesterday, not diarrhea. Taniya po well. Doing therapy. Her Holter report came back Saturday with HR < 50, 40% of the time. - Review of Systems Constitutional: No Fever Respiratory: No Cough Objective Exam General Appearance: no apparent distress, alert Neurologic Exam: oriented x 3, cooperative Skin Exam: normal color, warm, dry, No rash Respiratory Exam: normal breath sounds, lungs clear, No crackles/rales, No rhonchi, No wheezing Cardiovascular Exam: regular rate/rhythm, normal heart sounds, No murmur Gastrointestinal/Abdomen Exam: soft, normal bowel sounds, No tenderness, No distention, No mass, No guarding, No rebound Extremity Exam: normal inspection, No pedal edema, No swelling OBJECTIVE DATA Vital Signs: Vital Signs - 24 hr Temp Pulse Resp BP Pulse Ox 03/02/19 07:11 98 F 68 18 115/55 98 03/01/19 20:00 98.2 F 59 L 20 139/70 98 Pain Assessment - Last Documented Pain Intensity 0 Pain Scale Used [facility] Intake and Output: Intake & Output 02/27/19 02/28/19 03/01/19 03/02/19 11:59 11:59 11:59 11:59 Intake Total 1780 1160 1350 1120 Balance 1780 1160 1350 1120 Weight 91.1 kg Assessment/Plan (1) Physical deconditioning Current Visit: No Status: Acute Assessment & Plan: Continue PT. She will likely go home this week sometime. Code(s): R53.81 - OTHER MALAISE (2) Bradycardia Current Visit: No Status: Acute Assessment & Plan: Will discuss with Dr. Yang the results of Holter monitor report. Has an outpatient appt with Dr. Yang in [place] on March 11, 2019. Code(s): R00.1 - BRADYCARDIA, UNSPECIFIED
[2019-03-02] MEDS: Protonix 40MG Tablet PO SCH (09:41)
[2019-03-02] MEDS: Aldactone 25 MG PO SCH (09:41)
[2019-03-02] MEDS: MAG-OX 400 PO SCH (09:41)
[2019-03-02] MEDS: Miralax Powder 17GM PACKET PO SCH (09:42)
[2019-03-02] MEDS: SENOKOT 8.6 MG PO SCH ×2 (09:43→22:01)
[2019-03-03] MEDS: Protonix 40MG Tablet PO SCH (09:42)
[2019-03-03] MEDS: Aldactone 25 MG PO SCH (09:42)
[2019-03-03] MEDS: SENOKOT 8.6 MG PO SCH ×2 (09:42→22:12)
[2019-03-03] MEDS: Miralax Powder 17GM PACKET PO SCH (09:42)
[2019-03-03] MEDS: MAG-OX 400 PO SCH (09:42)
[2019-03-04 07:26] VITALS: BP 139/62; PULSE 64; O2SAT 90
--- NOTE | 2019-03-04 09:14 | PCM.DS ---
Discharge Summary Date of Admission: 02/24/19 10:30 Admitting Physician: BANDAR CATHERINE Primary Care Provider: BANDAR CATHERINE Allergies Allergies Sulfa (Sulfonamide Antibiotics) Allergy (Verified 02/19/19 22:42) varicella-zoster immune globulin (h [varicella-zoster immune glob] Adverse Reaction (Intermediate, Verified 02/19/19 22:42) rash and sore bones Hospital Summary - Hospital Course Hospital Course: Pt is a 73 yo female pt from [facility] who was admitted through ER with a bowel obstruction. She did not need surgical management; when she recovered she was felt to have physical deconditioning and was admitted to swing bed for therapy. Her PT has been going quite well and she is ambulating without any assist. She was noted to have bradycardia into the 40s. Holter monitor was done and she was found to have HR <50 about 40% of the time. I did speak to Dr. Bee and he said it's safe to send the pt home, she may have some increased vagal tone but he wants to see outpatient sleep study before treating the bradycardia. Pt eating well with BMs (sometimes using miralax). - Vitals & Intake/Output Vital Signs: Vital Signs Temperature 98 F 03/04/19 07:25 Pulse Rate 64 03/04/19 07:25 Respiratory Rate 22 03/04/19 07:25 Blood Pressure 139/62 03/04/19 07:25 O2 Sat by Pulse Oximetry 90 L 03/04/19 07:25 Oxygen-Last Documented O2 Percentage 5 Liters = 40% Intake & Output: Intake & Output 03/01/19 03/02/19 03/03/19 03/04/19 11:59 11:59 11:59 11:59 Intake Total 1350 1120 720 780 Balance 1350 1120 720 780 Weight 89.4 kg - Procedures and Test Procedures and Tests throughout Hospitalization: Therapy Orders & Screens 02/24/19 10:43 PT Eval & Treat ( Order) ROUTINE Reason for Eval:: DECONDITIONING R/T SBO AND BRADYCARDIA Diagnosis: DECONDITIONING R/T SBO AND BRADYCARDIA Holter Monitor ONCE Comment: Reason For Exam: Diagnosis: abdominal diane 02/25/19 13:51 Holter Monitor Scan-RT ONCE Comment: Reason For Exam: Diagnosis: abdominal diane Discharge Exam General Appearance: no apparent distress, alert Neurologic Exam: oriented x 3, cooperative Eye Exam: eyes nml inspection Ears, Nose, Throat Exam: moist mucous membranes Neck Exam: normal inspection Respiratory Exam: normal breath sounds, lungs clear, No crackles/rales, No rhonchi, No wheezing Cardiovascular Exam: regular rate/rhythm, normal heart sounds, No murmur Gastrointestinal/Abdomen Exam: soft, normal bowel sounds, No tenderness, No distention, No mass, No guarding, No rebound Extremity Exam: normal inspection, No pedal edema, No swelling Skin Exam: normal color, warm, dry, No rash Final Diagnosis/Problem List - Final Discharge Diagnosis/Problem (1) Physical deconditioning Current Visit: No Status: Acute Assessment & Plan: Much improved, doing well with PT. Home after PT today; may continue outpatient PT if needed. Code(s): R53.81 - OTHER MALAISE (2) Bradycardia Current Visit: No Status: Chronic Assessment & Plan: Has home sleep study scheduled in April. Seeing Dr. Gamez here in [place] next week. Code(s): R00.1 - BRADYCARDIA, UNSPECIFIED - Discharge Disposition: Home, Self-Care Condition: Stable Prescriptions: New Polyethylene Glycol 3350 17 gm [Miralax Powder 17GM PACKET] 17 gm PO DAILY packet Senna 8.6 mg [Senokot 8.6 mg] 8.6 mg PO BID tablet Continue Pravastatin Sodium 40 mg PO DAILY Omeprazole 40 mg PO BID Solifenacin Succinate 10 mg PO DAILY Magnesium Oxide 400 mg PO DAILY Docusate Sodium 100 mg PO DAILY Spironolactone 25 mg PO DAILY Ergocalciferol (Vitamin D2) [Vitamin D2] 50,000 unit PO Q7D Additional Instructions: APPOINTMENT WITH DR GAMEZ WILL BE IN [place] AT [facility]. Follow up with: FILIPE GAMEZ [CONSULTING PHYSICIAN] - 03/11/19 12:00 pm BANDAR CATHERINE [Primary Care Provider] - 1 Week
[2019-03-04] MEDS: Aldactone 25 MG PO SCH (12:21)
[2019-03-04] MEDS: MAG-OX 400 PO SCH (12:21)
[2019-03-04] MEDS: Miralax Powder 17GM PACKET PO SCH (12:21)
[2019-03-04] MEDS: Protonix 40MG Tablet PO SCH (12:21)
[2019-03-04] MEDS: SENOKOT 8.6 MG PO SCH (12:26)
[2019-03-08] MEDS ORDERED: Aplisol ID SCH (10:00)
== END 2019-03-04 13:28 | disposition home or self-care (01) | DRG 948 ==
LOC: MED SURG 10:30
PROVIDERS: ADMIT Family Medicine; ATTEND Family Medicine
DX: R53.81 Other malaise (principal); R00.1 Bradycardia, unspecified; Z79.899 Other long term (current) drug therapy; I10 Essential (primary) hypertension; E78.00 Pure hypercholesterolemia, unspecified; R42 Dizziness and giddiness; Z87.19 Personal history of other diseases of the digestive system
CPT/HCPCS: 93225; 93226; 97110-GP; A9270-GY

== ENCOUNTER 2019-03-07 15:48 | Observation (INO) | payer MEDICARE, OTHER, BC ==
[2019-03-07] MEDS ORDERED: Sodium Chloride 0.9% 1000 ML 1,000 ML IV STA (16:18)
--- NOTE | 2019-03-07 16:22 | ERPHSYRPT ---
- History of Present Illness Time Seen by Provider: 03/07/19 16:13 Historian: patient Exam Limitations: no limitations Patient Subjective Stated Complaint: Abdominal pain Triage Nursing Assessment: Patient brought into ED via EMS and transferred to bed with assist of 1. Patient A+O X 3. Patient's skin pink, warm and dry. Patient complains of constant aching pain to abdomen 12/17. Patient's abdomen round and hard with BS X4. Patient's last BM today. Patient states she was discharged on Saturday from being in hospital for 13 days with abdominal pain and vomiting. Patient states she has been vomiting. Physician History: 73-year-old white female with history of migraines, hypercholesterolemia, high blood pressure, bronchitis, GERD, gallbladder disease, renal disease, fibroids Who was recently released from this hospital where she was treated for small bowel obstruction for approximately 13 days She arrives with complaint of abdominal pain located in the epigastric and right upper quadrant and some vomiting symptoms since today Patient states she's had 2 bowel movements Past medical history includes migraines, hypercholesterolemia, high blood pressure, bronchitis, GERD, gallbladder disease, renal disease, fibroids Past surgical history includes cholecystectomy and hysterectomy Timing/Duration: today Activities at Onset: none Quality: cramping Abdominal Pain Onset Location: RUQ, epigastric Pain Radiation: no radiation Severity of Pain-Max: moderate Severity of Pain-Current: moderate Associated Symptoms: nausea, vomiting, No denies symptoms, No back, No chest pain, No diaphoresis, No diarrhea, No fever/chills, No fatigue, No headache, No heartburn, No loss of appetite, No neck pain, No rash, No shortness of breath, No syncope Previous symptoms: same symptoms as today (recently released secondary to small bowel obstruction) Allergies/Adverse Reactions: Sulfa (Sulfonamide Antibiotics) Allergy (Verified 03/07/19 16:01) varicella-zoster immune globulin (h [varicella-zoster immune glob] Adverse Reaction (Intermediate, Verified 03/07/19 16:01) rash and sore bones Home Medications: Pravastatin Sodium 40 mg PO DAILY 09/28/14 [History] Docusate Sodium 100 mg PO HS 02/19/19 [History] Magnesium Oxide 400 mg PO DAILY 02/19/19 [History] Solifenacin Succinate 10 mg PO DAILY 02/19/19 [History] Spironolactone 25 mg PO DAILY 02/19/19 [History] Ergocalciferol (Vitamin D2) [Vitamin D2] 50,000 unit PO Q7D 02/20/19 [History] Famotidine/Calcium Carb/Mag [Pepcid Complete Tablet Chew] 1 tab.chew PO BIDPRN PRN 03/04/19 [History] Hx Tetanus, Diphtheria Vaccination/Date Given: Yes Hx Influenza Vaccination/Date Given: Yes Hx Pneumococcal Vaccination/Date Given: Yes Immunizations Up to Date: Yes - Review of Systems Constitutional: No Fever, No Chills Eyes: No Symptoms Ears, Nose, & Throat: No Symptoms Respiratory: No Cough, No Dyspnea Cardiac: No Chest Pain, No Edema, No Syncope Abdominal/Gastrointestinal: Abdominal Pain, Nausea, Vomiting, No Diarrhea, No Constipation, No Hematemesis, No Hematochezia, No Melena, No Dysphagia, No Appetite Changes Genitourinary Symptoms: No Dysuria Musculoskeletal: No Back Pain, No Neck Pain Skin: No Rash Neurological: No Dizziness, No Focal Weakness, No Sensory Changes Psychological: No Symptoms Endocrine: No Symptoms All Other Systems: Reviewed and Negative - Past Medical History Pertinent Past Medical History: Yes Neurological History: Migraines ENT History: No Pertinent History Cardiac History: High Cholesterol, Hypertension Respiratory History: Bronchitis, Other Endocrine Medical History: No Pertinent History Musculoskeletal History: No Pertinent History GI Medical History: GERD, Gallbladder Disease History: Renal Disease Psycho-Social History: No Pertinent History Female Reproductive Disorders: Fibroids, Other - Past Surgical History Past Surgical History: Yes Neuro Surgical History: No Pertinent History Cardiac: No Pertinent History Respiratory: No Pertinent History Gastrointestinal: Cholecystectomy Genitourinary: No Pertinent History Musculoskeletal: No Pertinent History Female Surgical History: Hysterectomy - Social History Smoking Status: Never smoker Exposure to second hand smoke: Yes Drug Use: none Patient Lives Alone: Yes - Female History Hx Now: No - Nursing Vital Signs Nursing Vital Signs: Initial Vital Signs Pulse Rate 60 03/07/19 16:01 Respiratory Rate 18 03/07/19 16:01 Blood Pressure 179/74 03/07/19 16:01 O2 Sat by Pulse Oximetry 95 03/07/19 16:01 Pain Scale Pain Intensity 6 - Physical Exam General Appearance: mild distress, alert Eye Exam: PERRL/EOMI, eyes nml inspection Ears, Nose, Throat Exam: normal ENT inspection, pharynx normal, moist mucous membranes Neck Exam: normal inspection, non-tender, supple, full range of motion Respiratory Exam: normal breath sounds, lungs clear, No respiratory distress Cardiovascular Exam: regular rate/rhythm, normal heart sounds, capillary refill <2 sec Gastrointestinal/Abdomen Exam: soft, normal bowel sounds, tenderness (tender epigastric region), distention (distended in the epigastric region) Back Exam: normal inspection, normal range of motion, No CVA tenderness, No vertebral tenderness Extremity Exam: normal inspection, normal range of motion, pelvis stable Neurologic Exam: alert, oriented x 3, cooperative, sheet 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 Large anterior abdominal lobe midline defect with fat and bowel herniation. Interval development of caliber or change in the small bowel at the level of the neck likely representing partials low-grade small bowel obstruction.2. There additional nonemergent findings discussed in the body of the report) Ordered Tests: Active Orders 24 hr Category Date Time Status IV Insertion STAT Care 03/07/19 16:18 Active ABDOMEN AND PELVIS W/0 CONTRAS [CT] Stat Exams 03/07/19 16:22 Taken NG TUBE PLACEMENT (RAD) Stat Exams 03/07/19 Ordered AMYLASE Stat Lab 03/07/19 16:18 Completed CBC W DIFF Stat Lab 03/07/19 16:18 Completed CMP Stat Lab 03/07/19 16:18 Completed LIPASE Stat Lab 03/07/19 16:18 Completed UA W/RFX UR CULTURE Stat Lab 03/07/19 15:55 Completed Medication Summary Discontinued Medications Generic Name Dose Route Start Last Admin Trade Name Freq PRN Reason Stop Dose Admin Sodium Chloride 1,000 mls @ 999 mls/hr 03/07/19 16:18 03/07/19 17:42 Sodium Chloride 0.9% 1000 Ml IV 03/07/19 17:18 Infused .Q1H1M STA Infusion Sodium Chloride Confirm 03/07/19 16:34 Sodium Chloride 0.9% 1000 Ml Administered 03/07/19 16:35 Dose 1,000 mls @ ud .ROUTE .STK-MED ONE Promethazine HCl 25 mg 03/07/19 18:07 03/07/19 18:17 Phenergan 25 Mg Inj IM 03/07/19 18:08 25 mg STAT ONE Administration Lab/Rad Data: Laboratory Result Diagrams 03/07/19 16:18 03/07/19 16:18 Laboratory Results 03/07/19 03/07/19 03/07/19 Range/Units 16:18 16:18 15:55 WBC 5.8 (4.0-10.5) K/mm3 RBC 5.22 (4.1-5.4) M/mm3 Hgb 15.6 (12.0-16.0) gm/dl Hct 46.8 (35-47) % MCV 89.7 (78-100) fl MCH 29.9 (26-32) pg MCHC 33.3 (32-36) g/dl RDW 13.7 (11.5-14.0) % Plt Count 229 (150-450) K/mm3 MPV 10.7 H (6-9.5) fl Gran % 62.9 (36.0-66.0) % Eos # (Auto) 0.10 (0-0.5) Absolute Lymphs (auto) 1.32 (1.0-4.6) Absolute Monos (auto) 0.71 (0.0-1.3) Lymphocytes % 22.7 L (24.0-44.0) % Monocytes % 12.2 H (0.0-12.0) % Eosinophils % 1.7 (0.00-5.0) % Basophils % 0.5 (0.0-0.4) % Absolute Granulocytes 3.66 (1.4-6.9) Basophils # 0.03 (0-0.4) Sodium 140 (137-145) mmol/L Potassium 4.3 (3.5-5.1) mmol/L Chloride 103 (98-107) mmol/L Carbon Dioxide 25 (22-30) mmol/L Anion Gap 16.1 H (5-15) MEQ/L BUN 21 H (7-17) mg/dL Creatinine 1.39 H (0.52-1.04) mg/dL Estimated GFR 39.6 ML/MIN Glucose 148 H (74-106) mg/dL Calcium 10.4 H (8.4-10.2) mg/dL Total Bilirubin 0.90 (0.2-1.3) mg/dL AST 61 H (14-36) U/L ALT 60 H (0-35) U/L Alkaline Phosphatase 80 (38-126) U/L Serum Total Protein 7.9 (6.3-8.2) g/dL Albumin 4.6 (3.5-5.0) g/dL Amylase 83 (30-110) U/L Lipase 97 (23-300) U/L Urine Color YELLOW (YELLOW) Urine Appearance CLEAR (CLEAR) Urine pH 7.0 (5-6) Ur Specific Mabel 1.009 (1.005-1.025) Urine Protein NEGATIVE (Negative) Urine Ketones NEGATIVE (NEGATIVE) Urine Blood NEGATIVE (0-5) Stan/ul Urine Nitrite NEGATIVE (NEGATIVE) Urine Bilirubin NEGATIVE (NEGATIVE) Urine Urobilinogen NEGATIVE (0-1) mg/dL Ur Leukocyte Esterase NEGATIVE (NEGATIVE) Urine WBC (Auto) NONE (0-5) /HPF Urine RBC (Auto) 0-2 (0-2) /HPF U Epithel Cells (Auto) NONE (FEW) /HPF Urine Bacteria (Auto) NONE SEEN (NEGATIVE) /HPF Urine Mucus (Auto) SLIGHT (NEGATIVE) /HPF Urine Culture Reflexed NO (NO) Urine Glucose NEGATIVE (NEGATIVE) mg/dL - Progress Progress: improved Progress Note: 03/07/19 18:18 Patient continues to be nauseous after Zofran. Phenergan 25 mg I'm and has been ordered. NG tube has been ordered I discussed the case with Dr. Almeida will place patient on observation telemetry NG tube to low intermittent suction. Morphine 4 mg every 4 hours as needed for pain Zofran 4 mg as needed for nausea and vomiting. I discussed the case briefly with Dr. Zhang will obtain surgery consult. - Departure Departure Disposition: Observation Clinical Impression: Small bowel obstruction Abdominal pain Qualifiers: Abdominal location: epigastric Qualified Code(s): R10.13 - Epigastric pain Ventral hernia Qualifiers: Obstruction and gangrene presence: with obstruction but without gangrene Qualified Code(s): K43.6 - Other and unspecified ventral hernia with obstruction , without gangrene Condition: Fair Critical Care Time: No Referrals: BANDAR ALMEIDA [Primary Care Provider] -
[2019-03-07 16:27] LABS: BASOPHIL % 0.5 % (0.0-0.4); Basophil (Absolute #) 0.03 (0-0.4); Eosinophil % 1.7 % (0.00-5.0); Granulocyte Absolute (ANC) 3.66 (1.4-6.9); Granulocytes % 62.9 % (36.0-66.0); Hematocrit 46.8 % (35-47); Hemoglobin 15.6 gm/dl (12.0-16.0); Lymphocyte (Absolute #) 1.32 (1.0-4.6); Lymphocytes % 22.7 % (24.0-44.0); Mean Cell Volume 89.7 fl (78-100); Mean Corpuscular Hemoglobin 29.9 pg (26-32); Mean Corpuscular Hgb Concent. 33.3 g/dl (32-36); Mean Platelet Volume 10.7 fl (6-9.5); Monocyte (Absolute #) 0.71 (0.0-1.3); Monocytes % 12.2 % (0.0-12.0); Platelet Count 229 K/mm3 (150-450); Red Blood Count 5.22 M/mm3 (4.1-5.4); Red Cell Distribution Width 13.7 % (11.5-14.0); White Blood Count 5.8 K/mm3 (4.0-10.5)
[2019-03-07 16:32] LABS: ALBUMIN 4.6 g/dL (3.5-5.0); ANION GAP 16.1 MEQ/L (5-15); BILIRUBIN,TOTAL 0.9 mg/dL (0.2-1.3); Calcium 10.4 mg/dL (8.4-10.2); Creatinine 1 1.39 mg/dL (0.52-1.04); Potassium 4.3 mmol/L (3.5-5.1); Total Protein 7.9 g/dL (6.3-8.2)
[2019-03-07] MEDS ORDERED: Sodium Chloride 0.9% 1000 ML 1,000 ML ONE (16:34)
[2019-03-07 16:52] LABS: Appearance CLEAR (CLEAR); Bilirubin NEGATIVE (NEGATIVE); Blood NEGATIVE Ery/ul (0-5); Glucose NEGATIVE (NEGATIVE); Ketones NEGATIVE (NEGATIVE); Leukocyte Esterase NEGATIVE (NEGATIVE); Mucus SLIGHT /HPF (NEGATIVE); Nitrite NEGATIVE (NEGATIVE); Protein,Urine Dip NEGATIVE (Negative); RBC 0-2 /HPF (0-2); Specific Gravity 1.009 (1.005-1.025); Urobilinogen NEGATIVE mg/dL (0-1)
[2019-03-07 16:55] LABS: Bacteria NONE SEEN /HPF (NEGATIVE)
[2019-03-07] MEDS ORDERED: Phenergan 25 MG INJ IM ONE (18:07)
[2019-03-07] MEDS ORDERED: Phenergan 25 MG INJ ONE (18:16)
[2019-03-07] MEDS ORDERED: MORPHINE SULFATE 4 MG INJ IV PRN (19:35)
[2019-03-07] MEDS: Zofran 4 MG/2 ML VIAL IV PRN (20:26)
--- NOTE | 2019-03-07 21:06 | XRAY ---
Indication: Abdomen pain and vomiting. Multiple contiguous axial images obtained through the abdomen and pelvis without contrast as ordered. Comparison: February 20, 2019. Lung bases again demonstrates fibrosis/scarring and calcified granulomas. No infiltrate or effusion. Heart is not enlarged. Stable small hiatal hernia. Stomach again moderately fluid distended. Again there is a moderate-sized midline supra umbilical ventral hernia with herniated omental fat and small bowel loops. The small bowel loops just proximal to the hernia are slightly prominent, possible low-grade obstruction. No free fluid/air. Stable diffuse colonic diverticulosis, right renal angiomyolipoma, fatty liver, cholecystectomy, and hysterectomy. Remaining liver, pancreas, spleen, adrenal glands, kidneys, ureters, and bladder appear unremarkable for noncontrast exam. Stable mild aortoiliac calcifications without AAA. Osseous structures intact again with mild degenerative changes throughout the spine. Impression: 1. Again moderate-sized ventral hernia with herniated omental fat and small bowel loops. Query low-grade obstruction. 2. Stable colonic diverticulosis, hiatal hernia, fatty liver, right renal angiomyolipoma, and evidence for old granulomatous disease. Comment: Preliminary interpretation was made by C. No critical discrepancy. CTDI 23.23
[2019-03-07] MEDS: Sodium Chloride 0.9% 1000 ML 1,000 ML IV SCH (22:10)
[2019-03-07] MEDS ORDERED: APRESOLINE 20 MG/ML INJ IV ONE (22:18)
[2019-03-07] MEDS ORDERED: NovoLOG Insulin SQ PRN (22:21)
[2019-03-08 04:05] VITALS: O2SAT 94
[2019-03-08 05:52] LABS: BASOPHIL % 0.1 % (0.0-0.4); Basophil (Absolute #) 0.01 (0-0.4); Eosinophil (Absolute #) 0 (0-0.5); Granulocytes % 87.6 % (36.0-66.0); Hematocrit 46.5 % (35-47); Hemoglobin 15.7 gm/dl (12.0-16.0); Lymphocyte (Absolute #) 0.65 (1.0-4.6); Lymphocytes % 7.2 % (24.0-44.0); Mean Cell Volume 89.3 fl (78-100); Mean Corpuscular Hemoglobin 30.1 pg (26-32); Mean Corpuscular Hgb Concent. 33.8 g/dl (32-36); Mean Platelet Volume 9.6 fl (6-9.5); Monocyte (Absolute #) 0.46 (0.0-1.3); Monocytes % 5.1 % (0.0-12.0); Platelet Count 261 K/mm3 (150-450); Red Blood Count 5.21 M/mm3 (4.1-5.4); Red Cell Distribution Width 13.8 % (11.5-14.0)
[2019-03-08 06:14] LABS: ANION GAP 15.4 MEQ/L (5-15); BILIRUBIN,TOTAL 0.7 mg/dL (0.2-1.3); Calcium 9.7 mg/dL (8.4-10.2); Creatinine 1 1.24 mg/dL (0.52-1.04); Potassium 3.9 mmol/L (3.5-5.1); Total Protein 6.9 g/dL (6.3-8.2)
--- NOTE | 2019-03-08 07:34 | XRAY ---
Indication: NG tube placement. KUB demonstrates NG tube tip in the left upper quadrant of the abdomen presumed in the stomach. No focal bowel dilatation or free air. Right upper quadrant cholecystectomy clips. Osseous structures intact. Comment: Preliminary interpretation was made by [facility]. No discrepancy.
[2019-03-08] MEDS: Sodium Chloride 0.9% 1000 ML 1,000 ML IV SCH (08:08)
[2019-03-08] MEDS: Zofran 4 MG/2 ML VIAL IV PRN (08:12)
[2019-03-08 11:55] VITALS: BP 155/76; PULSE 75
--- NOTE | 2019-03-08 13:28 | PCM.HP ---
History of Present Illness - Chief Complaint Chief Complaint: abdominal pain History of Present Illness: is a 73 year old female pt of [facility] with hx of migraine, hyperlipidemia, HTN, GERD, gallbladder dz, and chronic renal failure who was admitted through the ER with small bowel obstruction. CT abd/pelvis w/ o contrast showed mod size midline supra umbilical ventral hernia with herniated omental fat and small bowel lopps (prox to hernia loops are slightly prominent, favoring obstruction). No free fluid/air. WBC were wnl and eGFR was 39.6 (today is improved to 45.2). Pt was discharged from hospital 4d ago - she felt very good. Yesterday she had a Boost, took her meds, then ate ham, chips, and a pepsi then 1 hour later felt nauseated. She came to ER later in the afternoon and started vomiting. NG tube was placed. Her pain is diffuse abdominal; was 8-9/10 but now is 2-3/10. Worse with movement. Vomitus was brown. She had been admitted at [facility] just over 2 weeks ago with SBO, was seen by surgery and was managed nonsurgically. Toward the end of her stay she was noted to be deconditioned and have bradycardia. She stayed on in swing bed and received PT. She also had a Holter monitor which showed HR < 50 about 40% of the time. I spoke with Dr. Bee, on for Dr. Yang, about this and he wanted her to have a sleep study before deciding whether to treat (sleep study had to be scheduled outpatient and is scheduled for April). She was scheduled to see Dr. Yang in [place] this week. - Review of Systems Cardiac: Edema (chronic puffy ankles) Neurological: Dizziness ("unbalanced") Psychological: Depression (intermittent), No Anxiety, No Suicidal Ideations, No Homicidal Ideations All Other Systems: Reviewed and Negative Medications & Allergies Home Medications: Home Medication List Pravastatin Sodium 40 mg PO DAILY 09/28/14 [History Confirmed 03/08/19] Magnesium Oxide 400 mg PO DAILY 02/19/19 [History Confirmed 03/08/19] Solifenacin Succinate 10 mg PO DAILY 02/19/19 [History Confirmed 03/08/19] Spironolactone 25 mg PO DAILY 02/19/19 [History Confirmed 03/08/19] Ergocalciferol (Vitamin D2) [Vitamin D2] 50,000 unit PO CLARIFY 02/20/19 [ History Confirmed 03/08/19] Famotidine/Calcium Carb/Mag [Pepcid Complete Tablet Chew] 1 tab.chew PO BIDPRN PRN 03/04/19 [History Confirmed 03/08/19] Polyethylene Glycol 3350 17 gm [Miralax Powder 17GM PACKET] 17 gm PO DAILY packet 03/04/19 [Rx Confirmed 03/08/19] Sennosides [Senna Laxative] 8.6 mg PO DAILY 03/08/19 [History Confirmed 03/08/19 ] Allergies/Adverse Reactions: Allergies Allergy/AdvReac Type Severity Reaction Status Date / Time Sulfa (Sulfonamide Allergy Verified 03/07/19 16:01 Antibiotics) varicella-zoster immune AdvReac Intermediate Verified 03/07/19 16:01 globulin (h [varicella-zoster immune glob] - Past Medical History Past Medical History: Yes Neurological History: Migraines ENT History: No Pertinent History Cardiac History: High Cholesterol, Hypertension Respiratory History: Bronchitis, Other Endocrine Medical History: No Pertinent History Musculoskelatal History: No Pertinent History GI Medical History: GERD, Gallbladder Disease History: Renal Disease Pyscho-Social History: No Pertinent History Reproductive Disorders: Fibroids, Other - Female History Are you now?: No - Past Surgical History Past Surgical History: Yes Neuro Surgical History: No Pertinent History Cardiac History: No Pertinent History Respiratory Surgery: No Pertinent History GI Surgical History: Cholecystectomy Genitourinary Surgical Hx: No Pertinent History Musculskeletal Surgical Hx: No Pertinent History Female Surgical History: Hysterectomy - Social History Smoking Status: Never smoker Exposure to second hand smoke: No Alcohol: None Drug Use: none - Physical Exam Vital Signs: Vital Signs - 24 hr Temp Pulse Resp BP Pulse Ox 03/08/19 11:54 98.8 F 75 18 155/76 94 L 03/08/19 07:01 99.0 F 82 18 135/60 94 L 03/08/19 05:43 94 L 03/08/19 04:00 98.7 F 71 19 146/65 94 L 03/08/19 00:00 98.0 F 56 L 19 198/86 92 L 03/07/19 18:51 96 H 16 98 03/07/19 18:21 95 03/07/19 18:17 72 16 174/112 97 03/07/19 17:15 62 18 176/73 96 03/07/19 16:01 60 18 179/74 95 General Appearance: no apparent distress, alert, other (NG tube with blood tinged brown to green liquid) Neurologic Exam: oriented x 3, cooperative Eye Exam: eyes nml inspection Ears, Nose, Throat Exam: moist mucous membranes Neck Exam: normal inspection, non-tender, No lymphadenopathy Respiratory Exam: normal breath sounds, lungs clear, No crackles/rales, No rhonchi, No wheezing Cardiovascular Exam: regular rate/rhythm, normal heart sounds, No murmur Gastrointestinal/Abdomen Exam: soft, distention (approx 12x15 cm firm mass in the midline), No normal bowel sounds (hyperactive), No tenderness, No guarding, No rebound Back Exam: normal inspection, No rash Extremity Exam: normal inspection, No pedal edema, No swelling Skin Exam: warm, dry, other (face with generalized erythema), No rash Results - Labs Lab/Micro Results: Accuchecks Date 03/08/19 Date 03/08/19 Date 03/07/19 Time 06:43 Time 00:30 Time 21:30 Accucheck Value: 152 Accucheck Value: 156 Accucheck Value: 147 Lab Results-Last 24 Hours 03/07/19 03/07/19 03/07/19 Range/Units 15:55 16:18 16:18 WBC 5.8 (4.0-10.5) K/mm3 RBC 5.22 (4.1-5.4) M/mm3 Hgb 15.6 (12.0-16.0) gm/dl Hct 46.8 (35-47) % MCV 89.7 (78-100) fl MCH 29.9 (26-32) pg MCHC 33.3 (32-36) g/dl RDW 13.7 (11.5-14.0) % Plt Count 229 (150-450) K/mm3 MPV 10.7 H (6-9.5) fl Gran % 62.9 (36.0-66.0) % Eos # (Auto) 0.10 (0-0.5) Absolute Lymphs (auto) 1.32 (1.0-4.6) Absolute Monos (auto) 0.71 (0.0-1.3) Lymphocytes % 22.7 L (24.0-44.0) % Monocytes % 12.2 H (0.0-12.0) % Eosinophils % 1.7 (0.00-5.0) % Basophils % 0.5 (0.0-0.4) % Absolute Granulocytes 3.66 (1.4-6.9) Basophils # 0.03 (0-0.4) Sodium 140 (137-145) mmol/L Potassium 4.3 (3.5-5.1) mmol/L Chloride 103 (98-107) mmol/L Carbon Dioxide 25 (22-30) mmol/L Anion Gap 16.1 H (5-15) MEQ/L BUN 21 H (7-17) mg/dL Creatinine 1.39 H (0.52-1.04) mg/dL Estimated GFR 39.6 ML/MIN Glucose 148 H (74-106) mg/dL Hemoglobin A1c (4.5-6.0) % Calcium 10.4 H (8.4-10.2) mg/dL Total Bilirubin 0.90 (0.2-1.3) mg/dL AST 61 H (14-36) U/L ALT 60 H (0-35) U/L Alkaline Phosphatase 80 (38-126) U/L Serum Total Protein 7.9 (6.3-8.2) g/dL Albumin 4.6 (3.5-5.0) g/dL Amylase 83 (30-110) U/L Lipase 97 (23-300) U/L Urine Color YELLOW (YELLOW) Urine Appearance CLEAR (CLEAR) Urine pH 7.0 (5-6) Ur Specific [place] 1.009 (1.005-1.025) Urine Protein NEGATIVE (Negative) Urine Ketones NEGATIVE (NEGATIVE) Urine Blood NEGATIVE (0-5) Stan/ul Urine Nitrite NEGATIVE (NEGATIVE) Urine Bilirubin NEGATIVE (NEGATIVE) Urine Urobilinogen NEGATIVE (0-1) mg/dL Ur Leukocyte Esterase NEGATIVE (NEGATIVE) Urine WBC (Auto) NONE (0-5) /HPF Urine RBC (Auto) 0-2 (0-2) /HPF U Epithel Cells (Auto) NONE (FEW) /HPF Urine Bacteria (Auto) NONE SEEN (NEGATIVE) /HPF Urine Mucus (Auto) SLIGHT (NEGATIVE) /HPF Urine Culture Reflexed NO (NO) Urine Glucose NEGATIVE (NEGATIVE) mg/dL 03/08/19 03/08/19 03/08/19 Range/Units 05:30 05:30 07:45 WBC 9.0 (4.0-10.5) K/mm3 RBC 5.21 (4.1-5.4) M/mm3 Hgb 15.7 (12.0-16.0) gm/dl Hct 46.5 (35-47) % MCV 89.3 (78-100) fl MCH 30.1 (26-32) pg MCHC 33.8 (32-36) g/dl RDW 13.8 (11.5-14.0) % Plt Count 261 (150-450) K/mm3 MPV 9.6 H (6-9.5) fl Gran % 87.6 H (36.0-66.0) % Eos # (Auto) 0 (0-0.5) Absolute Lymphs (auto) 0.65 L (1.0-4.6) Absolute Monos (auto) 0.46 (0.0-1.3) Lymphocytes % 7.2 L (24.0-44.0) % Monocytes % 5.1 (0.0-12.0) % Eosinophils % 0.0 (0.00-5.0) % Basophils % 0.1 (0.0-0.4) % Absolute Granulocytes 7.90 H (1.4-6.9) Basophils # 0.01 (0-0.4) Sodium 144 (137-145) mmol/L Potassium 3.9 (3.5-5.1) mmol/L Chloride 105 (98-107) mmol/L Carbon Dioxide 27 (22-30) mmol/L Anion Gap 15.4 H (5-15) MEQ/L BUN 18 H (7-17) mg/dL Creatinine 1.24 H (0.52-1.04) mg/dL Estimated GFR 45.2 ML/MIN Glucose 152 H (74-106) mg/dL Hemoglobin A1c 5.65 (4.5-6.0) % Calcium 9.7 (8.4-10.2) mg/dL Total Bilirubin 0.70 (0.2-1.3) mg/dL AST 28 (14-36) U/L ALT 49 H (0-35) U/L Alkaline Phosphatase 81 (38-126) U/L Serum Total Protein 6.9 (6.3-8.2) g/dL Albumin 4.0 (3.5-5.0) g/dL Amylase (30-110) U/L Lipase (23-300) U/L Urine Color (YELLOW) Urine Appearance (CLEAR) Urine pH (5-6) Ur Specific [place] (1.005-1.025) Urine Protein (Negative) Urine Ketones (NEGATIVE) Urine Blood (0-5) Stan/ul Urine Nitrite (NEGATIVE) Urine Bilirubin (NEGATIVE) Urine Urobilinogen (0-1) mg/dL Ur Leukocyte Esterase (NEGATIVE) Urine WBC (Auto) (0-5) /HPF Urine RBC (Auto) (0-2) /HPF U Epithel Cells (Auto) (FEW) /HPF Urine Bacteria (Auto) (NEGATIVE) /HPF Urine Mucus (Auto) (NEGATIVE) /HPF Urine Culture Reflexed (NO) Urine Glucose (NEGATIVE) mg/dL Accuchecks Date 03/08/19 Date 03/08/19 Date 03/07/19 Time 06:43 Time 00:30 Time 21:30 Accucheck Value: 152 Accucheck Value: 156 Accucheck Value: 147 - Radiology Impressions Radiology Exams & Impressions: Radiology Procedures Category Date Time Status ABDOMEN AND PELVIS W/0 CONTRAS [CT] Stat Exams 03/07/19 16:22 Completed KUB Stat Exams 03/07/19 19:35 Completed Assessment/Plan (1) Small bowel obstruction Current Visit: Yes Status: Acute Assessment & Plan: Dr. Caicedo saw the pt here and recommends surgery tomorrow. However, he anticipates, and I agree, that anesthesia would recommend doing the surgery in a place with cardiology support due to pt's bradycardia. I will speak with Dr. Gonzalez and anticipate transferring pt to or [facility] this afternoon. Code(s): K56.609 - UNSP INTESTNL OBST, UNSP TO PARTIAL VERSUS COMPLETE OBST (2) Chronic renal failure Current Visit: Yes Status: Acute Qualifiers: Chronic kidney disease stage: stage 3 (moderate) Qualified Code(s): N18.3 - Chronic kidney disease, stage 3 (moderate) Assessment & Plan: Renal function much improved since admission. (3) Physical deconditioning Current Visit: No Status: Chronic Assessment & Plan: may need swing bed stay again after acute stay; discussed with pt. Code(s): R53.81 - OTHER MALAISE (4) Bradycardia Current Visit: No Status: Chronic Code(s): R00.1 - BRADYCARDIA, UNSPECIFIED (5) Hypertension Current Visit: No Status: Chronic Qualifiers: Hypertension type: essential hypertension Qualified Code(s): I10 - Essential (primary) hypertension Assessment & Plan: Some elevated BP here; prn hydralazine given. Code(s): I10 - ESSENTIAL (PRIMARY) HYPERTENSION
--- NOTE | 2019-03-08 13:40 | PCM.DS ---
Discharge Summary Date of Admission: 03/07/19 19:05 Admitting Physician: BANDAR CATHERINE Consults: Consults on Case 03/07/19 19:35 Consult Surgery ROUTINE Primary Care Provider: BANDAR CATHERINE Allergies Allergies Sulfa (Sulfonamide Antibiotics) Allergy (Verified 03/07/19 16:01) varicella-zoster immune globulin (h [varicella-zoster immune glob] Adverse Reaction (Intermediate, Verified 03/07/19 16:01) rash and sore bones Hospital Summary - Hospital Course Hospital Course: is a 73 year old female pt of [facility] with hx of migraine, hyperlipidemia, HTN, GERD, gallbladder dz, and chronic renal failure who was admitted through the ER with small bowel obstruction. CT abd/pelvis w/ o contrast showed mod size midline supra umbilical ventral hernia with herniated omental fat and small bowel lopps (prox to hernia loops are slightly prominent, favoring obstruction). No free fluid/air. WBC were wnl and eGFR was 39.6 (today is improved to 45.2). Pt was discharged from hospital 4d ago - she felt very good. Yesterday she had a Boost, took her meds, then ate ham, chips, and a pepsi then 1 hour later felt nauseated. She came to ER later in the afternoon and started vomiting. NG tube was placed. Her pain is diffuse abdominal; was 8-9/10 but now is 2-3/10. Worse with movement. Vomitus was brown. She had been admitted at [facility] just over 2 weeks ago with SBO, was seen by surgery and was managed nonsurgically. Toward the end of her stay she was noted to be deconditioned and have bradycardia. She stayed on in swing bed and received PT. She also had a Holter monitor which showed HR < 50 about 40% of the time. I spoke with Dr. Bee, on for Dr. Gamez, about this and he wanted her to have a sleep study before deciding whether to treat (sleep study had to be scheduled outpatient and is scheduled for April). She was scheduled to see Dr. Gamez in [place] this week. Dr. Caicedo would like to perform surgery but it needs to be done where there is cardiology support. I will discuss the case with Dr. Gonzalez, staff weapons officer for [facility] cardiology, then hospitalist; will transfer pt this afternoon. - Vitals & Intake/Output Vital Signs: Vital Signs Temperature 98.8 F 03/08/19 11:54 Pulse Rate 75 03/08/19 11:54 Respiratory Rate 18 03/08/19 11:54 Blood Pressure 155/76 03/08/19 11:54 O2 Sat by Pulse Oximetry 94 L 03/08/19 11:54 Intake & Output: Intake & Output 03/06/19 03/07/19 03/08/19 03/09/19 11:59 11:59 11:59 11:59 Intake Total 380 0 Output Total 1575 Balance -1195 0 Weight 88.451 kg - Lab Result Diagrams: 03/08/19 05:30 03/08/19 05:30 Lab Results-Last 24 Hrs: Accuchecks Date 03/08/19 Date 03/08/19 Date 03/07/19 Time 06:43 Time 00:30 Time 21:30 Accucheck Value: 152 Accucheck Value: 156 Accucheck Value: 147 Lab Results-Last 24 Hours 03/07/19 03/07/19 03/07/19 Range/Units 15:55 16:18 16:18 WBC 5.8 (4.0-10.5) K/mm3 RBC 5.22 (4.1-5.4) M/mm3 Hgb 15.6 (12.0-16.0) gm/dl Hct 46.8 (35-47) % MCV 89.7 (78-100) fl MCH 29.9 (26-32) pg MCHC 33.3 (32-36) g/dl RDW 13.7 (11.5-14.0) % Plt Count 229 (150-450) K/mm3 MPV 10.7 H (6-9.5) fl Gran % 62.9 (36.0-66.0) % Eos # (Auto) 0.10 (0-0.5) Absolute Lymphs (auto) 1.32 (1.0-4.6) Absolute Monos (auto) 0.71 (0.0-1.3) Lymphocytes % 22.7 L (24.0-44.0) % Monocytes % 12.2 H (0.0-12.0) % Eosinophils % 1.7 (0.00-5.0) % Basophils % 0.5 (0.0-0.4) % Absolute Granulocytes 3.66 (1.4-6.9) Basophils # 0.03 (0-0.4) Sodium 140 (137-145) mmol/L Potassium 4.3 (3.5-5.1) mmol/L Chloride 103 (98-107) mmol/L Carbon Dioxide 25 (22-30) mmol/L Anion Gap 16.1 H (5-15) MEQ/L BUN 21 H (7-17) mg/dL Creatinine 1.39 H (0.52-1.04) mg/dL Estimated GFR 39.6 ML/MIN Glucose 148 H (74-106) mg/dL Hemoglobin A1c (4.5-6.0) % Calcium 10.4 H (8.4-10.2) mg/dL Total Bilirubin 0.90 (0.2-1.3) mg/dL AST 61 H (14-36) U/L ALT 60 H (0-35) U/L Alkaline Phosphatase 80 (38-126) U/L Serum Total Protein 7.9 (6.3-8.2) g/dL Albumin 4.6 (3.5-5.0) g/dL Amylase 83 (30-110) U/L Lipase 97 (23-300) U/L Urine Color YELLOW (YELLOW) Urine Appearance CLEAR (CLEAR) Urine pH 7.0 (5-6) Ur Specific [place] 1.009 (1.005-1.025) Urine Protein NEGATIVE (Negative) Urine Ketones NEGATIVE (NEGATIVE) Urine Blood NEGATIVE (0-5) Stan/ul Urine Nitrite NEGATIVE (NEGATIVE) Urine Bilirubin NEGATIVE (NEGATIVE) Urine Urobilinogen NEGATIVE (0-1) mg/dL Ur Leukocyte Esterase NEGATIVE (NEGATIVE) Urine WBC (Auto) NONE (0-5) /HPF Urine RBC (Auto) 0-2 (0-2) /HPF U Epithel Cells (Auto) NONE (FEW) /HPF Urine Bacteria (Auto) NONE SEEN (NEGATIVE) /HPF Urine Mucus (Auto) SLIGHT (NEGATIVE) /HPF Urine Culture Reflexed NO (NO) Urine Glucose NEGATIVE (NEGATIVE) mg/dL 03/08/19 03/08/19 03/08/19 Range/Units 05:30 05:30 07:45 WBC 9.0 (4.0-10.5) K/mm3 RBC 5.21 (4.1-5.4) M/mm3 Hgb 15.7 (12.0-16.0) gm/dl Hct 46.5 (35-47) % MCV 89.3 (78-100) fl MCH 30.1 (26-32) pg MCHC 33.8 (32-36) g/dl RDW 13.8 (11.5-14.0) % Plt Count 261 (150-450) K/mm3 MPV 9.6 H (6-9.5) fl Gran % 87.6 H (36.0-66.0) % Eos # (Auto) 0 (0-0.5) Absolute Lymphs (auto) 0.65 L (1.0-4.6) Absolute Monos (auto) 0.46 (0.0-1.3) Lymphocytes % 7.2 L (24.0-44.0) % Monocytes % 5.1 (0.0-12.0) % Eosinophils % 0.0 (0.00-5.0) % Basophils % 0.1 (0.0-0.4) % Absolute Granulocytes 7.90 H (1.4-6.9) Basophils # 0.01 (0-0.4) Sodium 144 (137-145) mmol/L Potassium 3.9 (3.5-5.1) mmol/L Chloride 105 (98-107) mmol/L Carbon Dioxide 27 (22-30) mmol/L Anion Gap 15.4 H (5-15) MEQ/L BUN 18 H (7-17) mg/dL Creatinine 1.24 H (0.52-1.04) mg/dL Estimated GFR 45.2 ML/MIN Glucose 152 H (74-106) mg/dL Hemoglobin A1c 5.65 (4.5-6.0) % Calcium 9.7 (8.4-10.2) mg/dL Total Bilirubin 0.70 (0.2-1.3) mg/dL AST 28 (14-36) U/L ALT 49 H (0-35) U/L Alkaline Phosphatase 81 (38-126) U/L Serum Total Protein 6.9 (6.3-8.2) g/dL Albumin 4.0 (3.5-5.0) g/dL Amylase (30-110) U/L Lipase (23-300) U/L Urine Color (YELLOW) Urine Appearance (CLEAR) Urine pH (5-6) Ur Specific [place] (1.005-1.025) Urine Protein (Negative) Urine Ketones (NEGATIVE) Urine Blood (0-5) Stan/ul Urine Nitrite (NEGATIVE) Urine Bilirubin (NEGATIVE) Urine Urobilinogen (0-1) mg/dL Ur Leukocyte Esterase (NEGATIVE) Urine WBC (Auto) (0-5) /HPF Urine RBC (Auto) (0-2) /HPF U Epithel Cells (Auto) (FEW) /HPF Urine Bacteria (Auto) (NEGATIVE) /HPF Urine Mucus (Auto) (NEGATIVE) /HPF Urine Culture Reflexed (NO) Urine Glucose (NEGATIVE) mg/dL Micro Results-Entire Visit: Accuchecks Date 03/08/19 Date 03/08/19 Date 03/07/19 Time 06:43 Time 00:30 Time 21:30 Accucheck Value: 152 Accucheck Value: 156 Accucheck Value: 147 - Radiology Exams Ordered Rad Exams-Entire Visit: Radiology Procedures Category Date Time Status ABDOMEN AND PELVIS W/0 CONTRAS [CT] Stat Exams 03/07/19 16:22 Completed KUB Stat Exams 03/07/19 19:35 Completed Discharge Exam General Appearance: no apparent distress, alert Neurologic Exam: oriented x 3, cooperative Eye Exam: eyes nml inspection Ears, Nose, Throat Exam: moist mucous membranes Neck Exam: normal inspection, non-tender, No lymphadenopathy Respiratory Exam: normal breath sounds, lungs clear, No crackles/rales, No rhonchi, No wheezing Cardiovascular Exam: regular rate/rhythm, normal heart sounds Gastrointestinal/Abdomen Exam: soft, distention (approx [id number] mass in midline) , No normal bowel sounds (hyperactive), No tenderness, No guarding, No rebound Back Exam: normal inspection, No rash Extremity Exam: normal inspection, No pedal edema, No swelling Final Diagnosis/Problem List - Final Discharge Diagnosis/Problem (1) Small bowel obstruction Current Visit: Yes Status: Acute Assessment & Plan: NG in place. Needs surgical treatment. Transfer to higher level of care where cardiology available - Dr. Read at [facility]. They will notify Dr. James when pt arrives, per Dr. Caicedo's instructions. Code(s): K56.609 - UNSP INTESTNL OBST, UNSP TO PARTIAL VERSUS COMPLETE OBST (2) Chronic renal failure Current Visit: Yes Status: Acute Assessment & Plan: improved function. (3) Physical deconditioning Current Visit: No Status: Chronic Assessment & Plan: may need swing bed/therapy again upon discharge. discussed w pt. Code(s): R53.81 - OTHER MALAISE (4) Bradycardia Current Visit: No Status: Chronic Code(s): R00.1 - BRADYCARDIA, UNSPECIFIED (5) Hypertension Current Visit: No Status: Chronic Assessment & Plan: has required prn hydralazine IV. Code(s): I10 - ESSENTIAL (PRIMARY) HYPERTENSION - Discharge Disposition: DC TO [facility] Condition: Stable Prescriptions: No Action Pravastatin Sodium 40 mg PO DAILY Solifenacin Succinate 10 mg PO DAILY Magnesium Oxide 400 mg PO DAILY Spironolactone 25 mg PO DAILY Ergocalciferol (Vitamin D2) [Vitamin D2] 50,000 unit PO CLARIFY Polyethylene Glycol 3350 17 gm [Miralax Powder 17GM PACKET] 17 gm PO DAILY packet Famotidine/Calcium Carb/Mag [Pepcid Complete Tablet Chew] 1 tab.chew PO BIDPRN PRN PRN Reason: Stomach Upset Sennosides [Senna Laxative] 8.6 mg PO DAILY Follow up with: FILIPE GAMEZ [CONSULTING PHYSICIAN] - 03/11/19 12:00 pm (at [facility] ) BANDAR CATHERINE [Primary Care Provider] - 1 Week
[2019-03-08] MEDS ORDERED: Pepcid 20 MG VIAL IV SCH (14:00)
--- NOTE | 2019-03-09 11:15 | CONS ---
CONSULT DATE: 03/08/2019 Dr. Zeeshan James was emd special education teacher when the consult came in. He asked that I stop by and round on the patient for him. HISTORY: This 73 year-old female has an open cholecystectomy upper midline incision. It sounds like by possibly Dr. Wilson in the past years ago back in 2002. She had a prior hysterectomy lower midline by Dr. Márquez in the past. She has a chronic ventral hernia upper midline. She has been in the hospital swing-bed previously. Dr. Gera Hernandez or Dr. Branden Hernandez had seen her in the past. Either way she is in the hospital, had some aches and pains. She had CT scan that showed ventral hernia and some omentum with some small bowel loops. No free air or collection. She is hemodynamically stable. White blood cell count 9, hemoglobin 15.7, PLT 261,000. She is not exhibiting any signs of any acute ischemia at this point but does have chronic hernia that would benefit from repair at some point. However unfortunately the patient has had problems with low heart rate and being followed by cardiology and is need of cardiac clearance previously or anesthesia would not proceed with anesthetic here at this time until cleared per buck swamper. PAST MEDICAL HISTORY: Again, she had some cardiac issues with bradycardia. She has had some hyperlipidemia, migraines, hypertension, reflux, and some renal disease in the past. PAST SURGICAL HISTORY: Open cholecystectomy at [facility] by another surgeon group years ago. She had open hysterectomy by Dr. Márquez years ago at [facility]. MEDICATIONS: Includes Pravastatin, Lasix, magnesium oxide, solifenacin succinate, Spironolactone, vitamin B2, Pepcid Complete tablet. ALLERGIES: NKDA. FAMILY HISTORY: Negative in regards to this problem. SOCIAL HISTORY: Denies smoking or alcohol abuse. REVIEW OF SYSTEMS: Twelve systems reviewed per admission assessment. No current chest pain or palpitations other systems negative or noncontributory as above and per preadmission questionnaire. She had some vague abdominal pain that is improved now. She has an NG in position. She had a bowel movement yesterday. No bowel movement this morning yet. PHYSICAL EXAMINATION: GENERAL: No acute distress. HEENT: Sclera nonicteric. NECK: No JVD. CHEST: Equal excursion, nonlabored breathing. CVS: Regular rate and rhythm. ABDOMEN: Soft. She had midline epigastric incision from prior open cholecystectomy. She has chronic hernia. EXTREMITIES: No significant edema. NEURO: Alert, moving extremities grossly symmetrically. No gross motor deficits noted. IMPRESSION: Chronic ventral hernia. No need for emergent surgery. Would benefit from repair in the near future but as it is not emergent, I feel she needs cardiac clearance as anesthesia would not give her anesthesia given her questionable cardiac status. Therefore I spoke with Dr. Brown. She will transfer to [place] to get cardiac clearance for eventual repair at some point probably by Dr. James or one of us pending timing of clearance. Otherwise general risk of bleeding or infection, risk of wound complications, risk of mesh infection possibly requiring removal, risk of adhesion or scar formation or obstruction, risk of recurrent hernia, risk of hematoma or seroma formation, general risk of aches, pains, burning or numbness possibly termite treater helper or chronic in nature, small possibility of requiring bowel resection or other procedures, rare risk of mesh fracture or failure possibly creating issues with viscera or other structures possibly requiring other procedures, general risk of anesthesia, deep venous thrombosis, pulmonary embolism, pneumonia, cardiopulmonary event but not limited to. At this time she needs to transfer for cardiac clearance. I will let Dr. James, as I am seeing the patient for him, let her know she is going to transfer up there. Otherwise no emergent surgery necessary.
== END 2019-03-08 15:15 | disposition short-term general hospital (02) ==
LOC: ED 15:48 → MED SURG 19:05
PROVIDERS: ADMIT Family Medicine; ATTEND Family Medicine
DX: K56.609 Unspecified intestinal obstruction, unspecified as to partial versus complete obstruction (principal); K43.9 Ventral hernia without obstruction or gangrene; N18.3 Chronic kidney disease, stage 3 (moderate); I12.9 Hypertensive chronic kidney disease with stage 1 through stage 4 chronic kidney disease, or unspecified chronic kidney disease; R53.81 Other malaise; R00.1 Bradycardia, unspecified; Z79.899 Other long term (current) drug therapy; E78.5 Hyperlipidemia, unspecified; R42 Dizziness and giddiness; E78.00 Pure hypercholesterolemia, unspecified
CPT/HCPCS: 36000; 36415; 74018; 74176; 80053; 81001; 82150; 82962; 83036; 83690; 83735; 85025; 93268; 96360; 96372; 99285; G0378; J0360; J2270; J2405; J2550

== ENCOUNTER 2019-03-17 10:43 | Inpatient (IN) | payer MEDICARE, OTHER, BC ==
[2019-03-17] MEDS ORDERED: Aplisol ID ONE ×2 (10:44→10:47)
[2019-03-17] MEDS ORDERED: [UNRECOGNIZED DRUG - OTHER] PO PRN (14:42)
[2019-03-17] MEDS ORDERED: FAMOTIDINE PO PRN (14:42)
[2019-03-17] MEDS ORDERED: MAG PO PRN (14:42)
[2019-03-17] MEDS ORDERED: CALCIUM CARB PO PRN (14:42)
[2019-03-17] MEDS ORDERED: NORCO 5/325 MG PO PRN (14:42)
[2019-03-17] MEDS ORDERED: Pepcid 20 MG PO PRN (14:48)
[2019-03-17] MEDS: VITAMIN D2 PO SCH (15:35)
[2019-03-17] MEDS: Ditropan 5 MG PO SCH (21:10)
[2019-03-17] MEDS: ZOCOR 20MG PO SCH (21:10)
[2019-03-18] MEDS: Aldactone 25 MG PO SCH (08:18)
[2019-03-18] MEDS: Ditropan 5 MG PO SCH ×2 (08:18→21:50)
[2019-03-18] MEDS: Protonix 40MG Tablet PO SCH (08:18)
[2019-03-18] MEDS: MAG-OX 400 PO SCH (08:18)
--- NOTE | 2019-03-18 08:44 | PCM.HP ---
History of Present Illness - Chief Complaint Chief Complaint: DECONDITIONING R/T REPAIR SBO INCARCERATED HERNIA History of Present Illness: is a 73 year old female pt with PMHx of chronic renal insufficiency,hyperlipidemia, and hyperglycemia who was admitted to swing bed after having a small bowel resection on 03/11/19. She had been admitted to [facility] then transferred to [facility] for the surgery. Currently she is not having any pain. She did have 1 bloody BM yesterday but had a nl BM afterward. Has trouble lifting her legs and getting out of a chair. Getting PT here. She would like a bland diet as our regular hospital diet has too many fried foods on it. - Review of Systems Constitutional: Other (sweats intermittently) Cardiac: Edema Genitourinary Symptoms: Other (polyuria) Skin: Other (bruising after IVs) Neurological: Headache (occasional), Other (nightmares) Psychological: No Suicidal Ideations, No Homicidal Ideations All Other Systems: Reviewed and Negative Medications & Allergies Home Medications: Home Medication List Pravastatin Sodium 40 mg PO DAILY 09/28/14 [History Confirmed 03/17/19] Magnesium Oxide 400 mg PO DAILY 02/19/19 [History Confirmed 03/17/19] Solifenacin Succinate 10 mg PO DAILY 02/19/19 [History Confirmed 03/17/19] Spironolactone 25 mg PO DAILY 02/19/19 [History Confirmed 03/17/19] Ergocalciferol (Vitamin D2) [Vitamin D2] 50,000 unit PO UD 02/20/19 [History Confirmed 03/17/19] Famotidine/Calcium Carb/Mag [Pepcid Complete Tablet Chew] 1 tab.chew PO BIDPRN PRN 03/04/19 [History Confirmed 03/17/19] Acetaminophen [Tylenol Extra Strength] 500 mg PO Q6HPRN PRN 03/17/19 [History Confirmed 03/17/19] Hydrocodone Bit/Acetaminophen [Hydrocodon-Acetaminophen 5-325] 1 each PO Q4HPRN PRN 03/17/19 [History Confirmed 03/17/19] PANTOPRAZOLE 40 mg Tablet [Protonix 40MG Tablet] 40 mg PO QAM 03/17/19 [ History Confirmed 03/17/19] Allergies/Adverse Reactions: Allergies Allergy/AdvReac Type Severity Reaction Status Date / Time Sulfa (Sulfonamide Allergy Verified 03/07/19 16:01 Antibiotics) varicella-zoster immune AdvReac Intermediate Verified 03/07/19 16:01 globulin (h [varicella-zoster immune glob] - Past Medical History Past Medical History: Yes Neurological History: Migraines ENT History: No Pertinent History Cardiac History: High Cholesterol, Hypertension Respiratory History: Bronchitis, Other Endocrine Medical History: No Pertinent History Musculoskelatal History: No Pertinent History GI Medical History: GERD, Gallbladder Disease History: Renal Disease Pyscho-Social History: No Pertinent History Reproductive Disorders: Fibroids, Other - Past Surgical History Past Surgical History: Yes Neuro Surgical History: No Pertinent History Cardiac History: No Pertinent History Respiratory Surgery: No Pertinent History GI Surgical History: Cholecystectomy, Colon Resection, Hernia Repair Genitourinary Surgical Hx: No Pertinent History Musculskeletal Surgical Hx: No Pertinent History Female Surgical History: Hysterectomy Other Surgical History: TRANSVERSE COLECTOMY 03/11/19 - Social History Smoking Status: Never smoker Exposure to second hand smoke: No Alcohol: None Drug Use: none - Physical Exam Vital Signs: Vital Signs - 24 hr Temp Pulse Resp BP Pulse Ox 03/18/19 07:40 99.3 F 65 16 142/67 93 L 03/17/19 20:22 98.5 F 73 16 151/71 96 03/17/19 11:20 97.6 F 75 18 188/99 97 03/17/19 11:05 97.6 F 75 18 188/99 97 General Appearance: no apparent distress, alert, obese Neurologic Exam: oriented x 3, cooperative, normal mood/affect Eye Exam: eyes nml inspection Ears, Nose, Throat Exam: moist mucous membranes Neck Exam: normal inspection, non-tender, supple, No lymphadenopathy Respiratory Exam: normal breath sounds, lungs clear, No crackles/rales, No rhonchi, No wheezing Cardiovascular Exam: regular rate/rhythm, normal heart sounds, No murmur Gastrointestinal/Abdomen Exam: soft, normal bowel sounds, other (midline incision with slight bloody oozing. there are two areas with packing present), No tenderness, No distention, No guarding, No rebound Back Exam: normal inspection, No rash Extremity Exam: normal inspection, No pedal edema, No swelling Skin Exam: normal color, warm, dry, No rash Assessment/Plan (1) S/P small bowel resection Current Visit: Yes Status: Acute Assessment & Plan: She is pod #7 today. [place] diet. Code(s): Z90.49 - ACQUIRED ABSENCE OF OTHER SPECIFIED PARTS OF DIGESTIVE TRACT (2) Physical deconditioning Current Visit: No Status: Chronic Assessment & Plan: PT here. Code(s): R53.81 - OTHER MALAISE (3) Chronic renal failure Current Visit: No Status: Chronic Qualifiers: Chronic kidney disease stage: stage 3 (moderate) Qualified Code(s): N18.3 - Chronic kidney disease, stage 3 (moderate)
[2019-03-18] MEDS: TYLENOL EXTRA STRENGTH 500 MG PO PRN (09:00)
[2019-03-18] MEDS ORDERED: NON-FORMULARY ITEM (Pravastatin Sodium [Pravastatin Sodium] 40 MG) PO SCH (10:00)
[2019-03-18] MEDS: ZOCOR 20MG PO SCH (21:50)
[2019-03-19] MEDS: MAG-OX 400 PO SCH (10:37)
[2019-03-19] MEDS: Ditropan 5 MG PO SCH ×2 (10:37→21:25)
[2019-03-19] MEDS: Aldactone 25 MG PO SCH (10:37)
[2019-03-19] MEDS: Protonix 40MG Tablet PO SCH (10:38)
[2019-03-19] MEDS: ZOCOR 20MG PO SCH (21:25)
[2019-03-20] MEDS: Ditropan 5 MG PO SCH ×2 (08:52→21:38)
[2019-03-20] MEDS: Protonix 40MG Tablet PO SCH (08:52)
[2019-03-20] MEDS: Aldactone 25 MG PO SCH (08:52)
[2019-03-20] MEDS: MAG-OX 400 PO SCH (08:52)
[2019-03-20] MEDS: ZOCOR 20MG PO SCH (21:37)
[2019-03-21] MEDS: Ditropan 5 MG PO SCH ×2 (09:54→22:00)
[2019-03-21] MEDS: Aldactone 25 MG PO SCH (09:54)
[2019-03-21] MEDS: MAG-OX 400 PO SCH (09:55)
[2019-03-21] MEDS: Protonix 40MG Tablet PO SCH (09:55)
[2019-03-21] MEDS: TYLENOL EXTRA STRENGTH 500 MG PO PRN ×2 (10:15→22:00)
[2019-03-21] MEDS: ZOCOR 20MG PO SCH (22:00)
[2019-03-22] MEDS: Protonix 40MG Tablet PO SCH (09:17)
[2019-03-22] MEDS: Ditropan 5 MG PO SCH ×2 (09:17→21:28)
[2019-03-22] MEDS: MAG-OX 400 PO SCH (09:17)
[2019-03-22] MEDS: Aldactone 25 MG PO SCH (09:17)
[2019-03-22] MEDS ORDERED: NORCO 5/325 MG PO PRN (15:00)
[2019-03-22] MEDS: TYLENOL EXTRA STRENGTH 500 MG PO PRN (21:28)
[2019-03-22] MEDS: ZOCOR 20MG PO SCH (21:28)
--- NOTE | 2019-03-23 08:44 | PCM.NOTE ---
Date and Time: 03/23/19 0839 Subjective Assessment: Pt is getting up out of bed and walking in the room with no issues. She is tolerating bland diet. Still having some intermittent abd pain that she characterizes as "nerve endings." She is nervous about being home by herself after discharge and being able to change her own dressings. - Review of Systems Constitutional: No Fever Abdominal/Gastrointestinal: No Abdominal Pain Objective Exam General Appearance: no apparent distress, alert Neurologic Exam: oriented x 3, cooperative, normal mood/affect Skin Exam: normal color, warm, dry, No rash Wound Assessment: Skin/Wound Assessment Wound/Incision Assessment Start: 03/19/19 11: 24 Text: Status: Active Freq: Q4H Protocol: Document 03/23/19 04:00 MG (Rec: 03/23/19 07:45 MG [id number]) Wound/Incision Assessment Anterior Medial Abdomen Wound Assessment Shift Assessment Wound Type Incision Wound Stage Non Pressure Wound Dressing Status Dry & Intact Drainage Amount None Drainage Odor None/Absent Primary Dressing ABD Pad in place Comment Incision covered by ABD pad, dressing CDI, no change noted Respiratory Exam: normal breath sounds, lungs clear, No crackles/rales, No rhonchi Cardiovascular Exam: regular rate/rhythm, normal heart sounds, No murmur Gastrointestinal/Abdomen Exam: soft, normal bowel sounds, other (midline incision with small amt serosanguinous drainage inferiorly. no erythema/exudate ), No tenderness Extremity Exam: normal inspection, No pedal edema, No swelling Back Exam: normal inspection, No rash OBJECTIVE DATA Vital Signs: Vital Signs - 24 hr Temp Pulse Resp BP Pulse Ox 03/23/19 07:34 98.2 F 62 18 136/81 94 L 03/22/19 19:54 98.3 F 68 18 129/70 93 L Pain Assessment - Last Documented Pain Intensity 4 Pain Scale [facility] Intake and Output: Intake & Output 03/20/19 03/21/19 03/22/19 03/23/19 11:59 11:59 11:59 11:59 Intake Total 1360 480 820 480 Output Total 300 Balance 1360 480 520 480 Weight 86.5 kg Assessment/Plan (1) S/P small bowel resection Current Visit: Yes Status: Acute Assessment & Plan: POD #12. She is scheduled to f/u with surgery in 3d so will likely just keep her until then and have surgery see her here. Code(s): Z90.49 - ACQUIRED ABSENCE OF OTHER SPECIFIED PARTS OF DIGESTIVE TRACT (2) Physical deconditioning Current Visit: No Status: Chronic Assessment & Plan: continued PT, thank you. Code(s): R53.81 - OTHER MALAISE (3) Chronic renal failure Current Visit: No Status: Chronic Qualifiers: Chronic kidney disease stage: stage 3 (moderate) Qualified Code(s): N18.3 - Chronic kidney disease, stage 3 (moderate) Assessment & Plan: recheck
[2019-03-23 09:33] LABS: Hematocrit 37.7 % (35-47); Hemoglobin 12.2 gm/dl (12.0-16.0); Mean Cell Volume 91.3 fl (78-100); Mean Corpuscular Hemoglobin 29.5 pg (26-32); Mean Corpuscular Hgb Concent. 32.4 g/dl (32-36); Mean Platelet Volume 8.8 fl (6-9.5); Platelet Count 370 K/mm3 (150-450); Red Blood Count 4.13 M/mm3 (4.1-5.4); Red Cell Distribution Width 13.8 % (11.5-14.0); White Blood Count 5.2 K/mm3 (4.0-10.5)
[2019-03-23] MEDS: Ditropan 5 MG PO SCH ×2 (10:31→23:25)
[2019-03-23] MEDS: Protonix 40MG Tablet PO SCH (10:31)
[2019-03-23] MEDS: MAG-OX 400 PO SCH (10:31)
[2019-03-23] MEDS: Aldactone 25 MG PO SCH (10:31)
[2019-03-23 10:43] LABS: ANION GAP 11.7 MEQ/L (5-15); Calcium 9.8 mg/dL (8.4-10.2); Creatinine 1 1.13 mg/dL (0.52-1.04); Potassium 4.2 mmol/L (3.5-5.1)
[2019-03-23] MEDS: VITAMIN D2 PO SCH (14:41)
[2019-03-23] MEDS: ZOCOR 20MG PO SCH (23:24)
[2019-03-24] MEDS: MAG-OX 400 PO SCH (09:47)
[2019-03-24] MEDS: Aldactone 25 MG PO SCH (09:47)
[2019-03-24] MEDS: Protonix 40MG Tablet PO SCH (09:48)
[2019-03-24] MEDS: Ditropan 5 MG PO SCH ×2 (09:48→21:20)
[2019-03-24] MEDS: ZOCOR 20MG PO SCH (21:20)
[2019-03-25] MEDS: Ditropan 5 MG PO SCH ×2 (10:31→20:20)
[2019-03-25] MEDS: MAG-OX 400 PO SCH (10:31)
[2019-03-25] MEDS: Protonix 40MG Tablet PO SCH (10:31)
[2019-03-25] MEDS: TYLENOL EXTRA STRENGTH 500 MG PO PRN (10:31)
[2019-03-25] MEDS: Aldactone 25 MG PO SCH (10:32)
[2019-03-25] MEDS: ZOCOR 20MG PO SCH (20:20)
[2019-03-26] MEDS: Ditropan 5 MG PO SCH ×2 (10:24→21:08)
[2019-03-26] MEDS: Protonix 40MG Tablet PO SCH (10:24)
[2019-03-26] MEDS: MAG-OX 400 PO SCH (10:24)
[2019-03-26] MEDS: Aldactone 25 MG PO SCH (10:24)
--- NOTE | 2019-03-26 13:04 | PROG NOTE ---
HISTORY: She is in the rehab unit. She is about two weeks from herniorrhaphy with resection of the large bowel. She is doing well, incision is doing well. There is just one small drop of fluid. Her stitches are in place. Her abdomen is soft. She is eating. Her bowels are moving. Her abdominal binder in place. She is getting rehab. She is making progress satisfactory.
[2019-03-26] MEDS: ZOCOR 20MG PO SCH (21:08)
[2019-03-26] MEDS: TYLENOL EXTRA STRENGTH 500 MG PO PRN (21:25)
[2019-03-27 09:50] LABS: Hemoglobin 13.3 gm/dl (12.0-16.0); Mean Cell Volume 90.9 fl (78-100); Mean Corpuscular Hemoglobin 29.5 pg (26-32); Mean Corpuscular Hgb Concent. 32.4 g/dl (32-36); Mean Platelet Volume 9.3 fl (6-9.5); Platelet Count 379 K/mm3 (150-450); Red Blood Count 4.51 M/mm3 (4.1-5.4); White Blood Count 9.3 K/mm3 (4.0-10.5)
[2019-03-27 10:34] LABS: ANION GAP 13.9 MEQ/L (5-15); Calcium 9.9 mg/dL (8.4-10.2); Creatinine 1 1.26 mg/dL (0.52-1.04)
[2019-03-27] MEDS: MAG-OX 400 PO SCH (11:05)
[2019-03-27] MEDS: Aldactone 25 MG PO SCH (11:05)
[2019-03-27] MEDS: Protonix 40MG Tablet PO SCH (11:05)
[2019-03-27] MEDS: Ditropan 5 MG PO SCH ×2 (11:05→21:02)
[2019-03-27] MEDS ORDERED: NORCO 5/325 MG PO PRN (15:10)
[2019-03-27] MEDS ORDERED: Aplisol ID ONE (17:08)
--- NOTE | 2019-03-27 18:05 | PCM.NOTE ---
Date and Time: 03/27/19 1800 Subjective Assessment: Late entry for encounter done 03/27/19 at approx 0830 a.m. Pt "just feels lousy" today. Did tolerate her breakfast. Was seen by Dr. Hernandez yesterday. Objective Exam General Appearance: no apparent distress, alert Neurologic Exam: oriented x 3, cooperative Skin Exam: normal color, warm, dry, No rash Wound Assessment: Skin/Wound Assessment Wound/Incision Assessment Start: 03/19/19 11: 24 Text: Status: Active Freq: Q4H Protocol: Document 03/27/19 14:00 (Rec: 03/27/19 14:11 [id number]) Wound/Incision Assessment Anterior Medial Abdomen Wound Assessment Shift Assessment Wound Type Incision Wound Stage Non Pressure Wound Dressing Status Dry & Intact Drainage Amount None Drainage Description Serous Drainage Odor None/Absent General Appearance Well Approximated Primary Dressing Absorbant Pad Secondary Dressing Absorbant Pad Left Upper Abdomen Drain Type WILDER drain Drainage Description Sanguineous Odor None/Absent Wound Photo Photo Taken No Respiratory Exam: normal breath sounds, lungs clear, No crackles/rales, No rhonchi, No wheezing Cardiovascular Exam: regular rate/rhythm, normal heart sounds, No murmur Gastrointestinal/Abdomen Exam: soft, normal bowel sounds, tenderness (diffuse), other (dressing clean and dry. incision is intact. there is scant serosanguinous drainage from inferior portion of incision.), No distention, No mass, No guarding Extremity Exam: normal inspection, No pedal edema, No swelling Back Exam: normal inspection, No rash OBJECTIVE DATA Vital Signs: Vital Signs - 24 hr Temp Pulse Resp BP Pulse Ox 03/27/19 07:28 99.4 F 89 18 119/56 93 L 03/26/19 19:52 98.0 F 73 19 172/62 96 Pain Assessment - Last Documented Pain Intensity 0 Pain Scale Used 0-10 Pain Scale Intake and Output: Intake & Output 03/25/19 03/26/19 03/27/19 03/28/19 11:59 11:59 11:59 11:59 Intake Total 860 360 540 360 Balance 860 360 540 360 Lab Results: Lab Results-Last 24 Hours 03/27/19 03/27/19 Range/Units 08:50 08:50 WBC 9.3 (4.0-10.5) K/mm3 RBC 4.51 (4.1-5.4) M/mm3 Hgb 13.3 (12.0-16.0) gm/dl Hct 41.0 (35-47) % MCV 90.9 (78-100) fl MCH 29.5 (26-32) pg MCHC 32.4 (32-36) g/dl RDW 14.0 (11.5-14.0) % Plt Count 379 (150-450) K/mm3 MPV 9.3 (6-9.5) fl Sodium 138 (137-145) mmol/L Potassium 4.0 (3.5-5.1) mmol/L Chloride 104 (98-107) mmol/L Carbon Dioxide 24 (22-30) mmol/L Anion Gap 13.9 (5-15) MEQ/L BUN 17 (7-17) mg/dL Creatinine 1.26 H (0.52-1.04) mg/dL Estimated GFR 44.4 ML/MIN Glucose 169 H (74-106) mg/dL Calcium 9.9 (8.4-10.2) mg/dL Multi-Disciplinary Progress Notes: Multi-Disciplinary Progress Notes 03/27/19 17:28 Physical Therapy Note by Bianka Dolan PT. REPORTS SOME BILATERAL LATERAL LE "ACHING" LAST NIGHT WHILE IN BED. STILL REPORTS SOME LATERAL TRUNK PN WELL. PT. AMBULATED 700' WITHOUT A.D. W/ 1# CUFF WEIGHTS BILATERAL ANKLES WITHOUT REST, INSTABILITY, OR SOB. PT ABLE TO PERFORM 15 REPS OF GENERAL STRENGTHENING W/ 1# CUFF WEIGHT WITHOUT DIFFICULTY. SIT TO STAND PERFORMED W/ UE SUPPORT FROM THERAPY MAT WITHOUT ASSIST. PT. TOLERATES RX WELL AND HAS PROGRESSED VERY WELL TOWARD REHAB GOALS AND SHOULD BE READY FOR D/C HOME SOON W/ ASSIST OF [facility] FOR DRS[facility] MG'T OF ABDOMINAL INCISION. BIANKA DOLAN PT Initialized on 03/27/19 17:28 - END OF NOTE Assessment/Plan (1) S/P small bowel resection Current Visit: Yes Status: Acute Assessment & Plan: Recovering well. Per surgery, thank you. Code(s): Z90.49 - ACQUIRED ABSENCE OF OTHER SPECIFIED PARTS OF DIGESTIVE TRACT (2) Physical deconditioning Current Visit: No Status: Chronic Assessment & Plan: Has been doing PT. May be ready to d/c home some time next week. Code(s): R53.81 - OTHER MALAISE (3) Chronic renal failure Current Visit: No Status: Chronic Qualifiers: Chronic kidney disease stage: stage 3 (moderate) Qualified Code(s): N18.3 - Chronic kidney disease, stage 3 (moderate) Assessment & Plan: recheck labs
[2019-03-27] MEDS: ZOCOR 20MG PO SCH (21:02)
[2019-03-28] MEDS: Ditropan 5 MG PO SCH ×2 (09:30→21:35)
[2019-03-28] MEDS: Aldactone 25 MG PO SCH (09:30)
[2019-03-28] MEDS: Protonix 40MG Tablet PO SCH (09:31)
[2019-03-28] MEDS: MAG-OX 400 PO SCH (09:31)
[2019-03-28] MEDS: Colace 100 MG PO PRN (17:55)
[2019-03-28] MEDS: ZOCOR 20MG PO SCH (21:35)
[2019-03-29] MEDS: Aldactone 25 MG PO SCH (09:29)
[2019-03-29] MEDS: Protonix 40MG Tablet PO SCH (09:29)
[2019-03-29] MEDS: MAG-OX 400 PO SCH (09:29)
[2019-03-29] MEDS: Ditropan 5 MG PO SCH ×2 (09:29→20:32)
[2019-03-29] MEDS: Colace 100 MG PO PRN ×2 (09:29→20:34)
[2019-03-29] MEDS: ZOCOR 20MG PO SCH (20:32)
[2019-03-30] MEDS: Protonix 40MG Tablet PO SCH (09:22)
[2019-03-30] MEDS: Aldactone 25 MG PO SCH (09:22)
[2019-03-30] MEDS: MAG-OX 400 PO SCH (09:22)
[2019-03-30] MEDS: Ditropan 5 MG PO SCH ×2 (09:22→21:45)
[2019-03-30] MEDS: Miralax Powder 17GM PACKET PO PRN (10:07)
[2019-03-30] MEDS: VITAMIN D2 PO SCH (16:41)
[2019-03-30] MEDS: ZOCOR 20MG PO SCH (21:45)
[2019-03-30] MEDS: Colace 100 MG PO PRN (21:47)
[2019-03-31 06:43] LABS: ANION GAP 13.6 MEQ/L (5-15); Creatinine 1 1.29 mg/dL (0.52-1.04); Potassium 4.1 mmol/L (3.5-5.1)
[2019-03-31] MEDS: Aldactone 25 MG PO SCH (09:58)
[2019-03-31] MEDS: Protonix 40MG Tablet PO SCH (09:58)
[2019-03-31] MEDS: Ditropan 5 MG PO SCH ×2 (09:58→22:09)
[2019-03-31] MEDS: MAG-OX 400 PO SCH (09:58)
[2019-03-31] MEDS: ZOCOR 20MG PO SCH (22:09)
--- NOTE | 2019-04-01 09:18 | PCM.NOTE ---
Date and Time: 04/01/19915 Subjective Assessment: Pt was constipated but relieved with miralax. Eating small amounts of bland diet. Working with PT. She is feeling better about her incision as she can see it's healing. - Review of Systems Constitutional: No Fever Abdominal/Gastrointestinal: No Vomiting Objective Exam General Appearance: no apparent distress, alert Neurologic Exam: oriented x 3, cooperative Skin Exam: normal color, warm, dry, No rash Wound Assessment: Skin/Wound Assessment Wound/Incision Assessment Start: 03/19/19 11: 24 Text: Status: Active Freq: Q4H Protocol: Document 04/01/19 06:00 MG (Rec: 04/01/19 07:28 MG [id number]) Wound/Incision Assessment Anterior Medial Abdomen Wound Assessment Shift Assessment Wound Type Incision Wound Stage Non Pressure Wound Dressing Status Dry & Intact Drainage Amount None Drainage Odor None/Absent Primary Dressing Non-Adherent Gauze Pads Secondary Dressing Absorbant Pad Comment Dressing remains CDI. Ears, Nose, Throat Exam: moist mucous membranes Respiratory Exam: normal breath sounds, lungs clear, No crackles/rales, No rhonchi, No wheezing Cardiovascular Exam: regular rate/rhythm, normal heart sounds, No murmur Gastrointestinal/Abdomen Exam: soft, normal bowel sounds, other (midline incision healing well; 4-[address] Inferiorly there is stilla small amt of serous drainage. no erythema or exudate, no induration.), No tenderness, No distention, No mass, No guarding, No rebound OBJECTIVE DATA Vital Signs: Vital Signs - 24 hr Temp Pulse Resp BP Pulse Ox 04/01/19 07:26 98.2 F 70 18 125/59 97 03/31/19 20:00 98.3 F 66 18 129/76 96 Pain Assessment - Last Documented Pain Intensity 0 Pain Scale Used 0-10 Pain Scale Intake and Output: Intake & Output 03/29/19 03/30/19 03/31/19 04/01/19 11:59 11:59 11:59 11:59 Intake Total 066 733 0058 720 Balance 127 440 0157 720 Weight 82.2 kg Multi-Disciplinary Progress Notes: Multi-Disciplinary Progress Notes 03/31/19 10:00 Case Management Note by Mooring,Suly SPOKE WITH PT ABOUT DC NEEDS. SHE HOPES TO GO HOME TOMORROW WITH [facility]. REFERRAL MADE. Initialized on 03/31/19 10:00 - END OF NOTE Assessment/Plan (1) S/P small bowel resection Current Visit: Yes Status: Acute Assessment & Plan: Her incision looks great - RN to check with surgery today regarding timing of suture removal. Code(s): Z90.49 - ACQUIRED ABSENCE OF OTHER SPECIFIED PARTS OF DIGESTIVE TRACT (2) Physical deconditioning Current Visit: No Status: Chronic Assessment & Plan: PT Code(s): R53.81 - OTHER MALAISE (3) Chronic renal failure Current Visit: No Status: Chronic Qualifiers: Chronic kidney disease stage: stage 3 (moderate) Qualified Code(s): N18.3 - Chronic kidney disease, stage 3 (moderate)
[2019-04-01] MEDS: Ditropan 5 MG PO SCH ×2 (10:25→22:04)
[2019-04-01] MEDS: Protonix 40MG Tablet PO SCH (10:25)
[2019-04-01] MEDS: MAG-OX 400 PO SCH (10:25)
[2019-04-01] MEDS: Aldactone 25 MG PO SCH (10:25)
[2019-04-01] MEDS: ZOCOR 20MG PO SCH (22:05)
[2019-04-01] MEDS: NORCO 5/325 MG PO PRN (22:05)
[2019-04-02] MEDS: Protonix 40MG Tablet PO SCH (08:15)
[2019-04-02] MEDS: Ditropan 5 MG PO SCH ×2 (08:15→21:51)
[2019-04-02] MEDS: Aldactone 25 MG PO SCH (08:15)
[2019-04-02] MEDS: MAG-OX 400 PO SCH (08:15)
[2019-04-02] MEDS: Miralax Powder 17GM PACKET PO PRN (08:16)
[2019-04-02] MEDS: ZOCOR 20MG PO SCH (21:51)
[2019-04-02] MEDS: NORCO 5/325 MG PO PRN (21:52)
[2019-04-03 07:59] VITALS: BP 123/75; PULSE 62; O2SAT 95
--- NOTE | 2019-04-03 09:27 | PCM.DS ---
Discharge Summary Date of Admission: 03/17/19 11:04 Admitting Physician: BANDAR CATHERINE Primary Care Provider: BANDAR CATHERINE Allergies Allergies Sulfa (Sulfonamide Antibiotics) Allergy (Verified 03/07/19 16:01) varicella-zoster immune globulin (h [varicella-zoster immune glob] Adverse Reaction (Intermediate, Verified 03/07/19 16:01) rash and sore bones Hospital Summary - Hospital Course Hospital Course: is a 73 year old female pt with PMHx of chronic renal insufficiency,hyperlipidemia, and hyperglycemia who was admitted to [facility] after having a small bowel resection on 03/11/19. She had been admitted to [facility] then transferred to [facility] for the surgery. She had one bloody BM after admission but none since. Has had some constipation which is relieved with miralax. She has been anxious about her incision. However the sutures have been removed and it is healing well. She did have an appointment with surgery last week and was seen here instead. Her therapy appears to be progressing very well. She will be discharged to home today - f/u with me in1 week and surgery as ordered. - Vitals & Intake/Output Vital Signs: Vital Signs Temperature 98.6 F 04/03/19 07:58 Pulse Rate 62 04/03/19 07:58 Respiratory Rate 18 04/03/19 07:58 Blood Pressure 123/75 04/03/19 07:58 O2 Sat by Pulse Oximetry 95 04/03/19 07:58 Intake & Output: Intake & Output 03/31/19 04/01/19 04/02/19 04/03/19 11:59 11:59 11:59 11:59 Intake Total 2778 474 7128 600 Balance 0163 506 7887 600 Weight 82.2 kg - Lab Result Diagrams: 03/27/19 08:50 03/31/19 05:58 - Procedures and Test Procedures and Tests throughout Hospitalization: Therapy Orders & Screens 03/17/19 10:51 PT Eval & Treat ( Order) ROUTINE Reason for Eval:: DECONDITIONING RT TRANSVERSE COLECTOMY Diagnosis: DECONDITIONING RT COLECTOMY 03/17/19 10:52 PT Eval & Treat ( Order) ROUTINE Reason for Eval:: DECONDITIONING R/T REPAIR OF SBO, INCARCERATED HERNIA Diagnosis: DECONDITIONING R/T REPAIR SBO INCARCERATED HERNIA 03/17/19 11:29 OT Screen per Nursing Assess ONCE Comment: Protocol Order Physician Instructions: Greater than 3 points order OT Admission Screening Reason For Exam: Triggered on Admission Diagnosis: DECONDITIONING R/T REPAIR SBO INCARCERATED HERNIA Open Wound/Cellutlitis/Pressure Ulcers: Yes Acute Fx/ORIF/Change in wt bearing status: No Severe MUSCULOSKELETAL pain: No ADL Dysfunction: No Acute CVA w/Hemiparesis/Hemiplegia: No Decreased Functional Mobility/Strength: Yes Sprain/Strain: No Acute Post-op Mobility Dysfunction: No Total Points: 6 PT Screen per Nursing Assess ONCE Comment: Protocol Order Physician Instructions: Greater than 3 points order PT Admission Screenin Reason For Exam: Triggered on Admission Diagnosis: DECONDITIONING R/T REPAIR SBO INCARCERATED HERNIA Open Wound/Cellutlitis/Pressure Ulcers: Yes Acute Fx/ORIF/Change in wt bearing status: No Severe MUSCULOSKELETAL pain: No ADL Dysfunction: No Acute CVA w/Hemiparesis/Hemiplegia: No Decreased Functional Mobility/Strength: Yes Sprain/Strain: No Acute Post-op Mobility Dysfunction: No Total Points: 6 Discharge Exam General Appearance: no apparent distress, alert Neurologic Exam: oriented x 3, cooperative Eye Exam: eyes nml inspection Ears, Nose, Throat Exam: moist mucous membranes Neck Exam: normal inspection Respiratory Exam: normal breath sounds, lungs clear, No crackles/rales, No rhonchi, No wheezing Cardiovascular Exam: regular rate/rhythm, normal heart sounds, No murmur Gastrointestinal/Abdomen Exam: soft, normal bowel sounds, other (midline incision healing well; no erythema or exudate), No tenderness, No distention, No mass, No guarding, No rebound Extremity Exam: normal inspection, No pedal edema, No swelling Skin Exam: normal color, warm, dry, No rash Wound Assessment: Skin/Wound Assessment Wound/Incision Assessment Start: 03/19/19 11: 24 Text: Status: Active Freq: Q4H Protocol: Document 04/03/19 06:00 MG (Rec: 04/03/19 08:04 MG [id number]) Wound/Incision Assessment Anterior Medial Abdomen Wound Assessment Shift Assessment Wound Type Incision Wound Stage Non Pressure Wound Dressing Status Dry & Intact Drainage Amount Minimal Drainage Description Serous Drainage Odor None/Absent General Appearance Well Approximated Primary Dressing Absorbant Pad Comment Small amount of serous drainage on dressing, no change noted. Final Diagnosis/Problem List - Final Discharge Diagnosis/Problem (1) S/P small bowel resection Status: Acute Assessment & Plan: doing great. F/u with surgery outpatient as ordered. Code(s): Z90.49 - ACQUIRED ABSENCE OF OTHER SPECIFIED PARTS OF DIGESTIVE TRACT (2) Physical deconditioning Status: Chronic Assessment & Plan: much improved. Home with home health. Code(s): R53.81 - OTHER MALAISE (3) Chronic renal failure Status: Chronic Assessment & Plan: continue getting regular labs. recheck next week when she follows up in office. - Discharge Disposition: HOME HEALTH SERVICE Condition: Stable Prescriptions: Continue Pravastatin Sodium 40 mg PO DAILY Solifenacin Succinate 10 mg PO DAILY Magnesium Oxide 400 mg PO DAILY Spironolactone 25 mg PO DAILY Ergocalciferol (Vitamin D2) [Vitamin D2] 50,000 unit PO UD Famotidine/Calcium Carb/Mag [Pepcid Complete Tablet Chew] 1 tab.chew PO BIDPRN PRN PRN Reason: Stomach Upset PANTOPRAZOLE 40 mg Tablet [Protonix 40MG Tablet] 40 mg PO QAM Hydrocodone Bit/Acetaminophen [Hydrocodon-Acetaminophen 5-325] 1 each PO Q4HPRN PRN PRN Reason: Pain Acetaminophen [Tylenol Extra Strength] 500 mg PO Q6HPRN PRN PRN Reason: Pain Instructions: Small Bowel Resection, Surgical Wound (DC) Additional Instructions: [facility] WILL CONTACT YOU TO ARRANGE YOUR FIRST VISIT. YOU MAY CALL THEM AT [phone] FOR ANY NEEDS. Follow up with: FILIPE GAMEZ [CONSULTING PHYSICIAN] - 04/08/19 11:00 am KHOI CHAVIS [ACTIVE STAFF] - 03/26/19 2:30 am BANDAR CATHERINE [Primary Care Provider] - 04/13/19 10:45 am Forms: Discharge Instructions
[2019-04-03] MEDS: MAG-OX 400 PO SCH (10:12)
[2019-04-03] MEDS: Protonix 40MG Tablet PO SCH (10:13)
[2019-04-03] MEDS: Ditropan 5 MG PO SCH (10:13)
[2019-04-03] MEDS: Aldactone 25 MG PO SCH (10:13)
== END 2019-04-03 11:25 | disposition home health service (06) | DRG 950 ==
LOC: MED SURG 11:04
PROVIDERS: ADMIT Family Medicine; ATTEND Family Medicine
DX: Z48.815 Encounter for surgical aftercare following surgery on the digestive system (principal); R53.81 Other malaise; E78.5 Hyperlipidemia, unspecified; I12.9 Hypertensive chronic kidney disease with stage 1 through stage 4 chronic kidney disease, or unspecified chronic kidney disease; N18.3 Chronic kidney disease, stage 3 (moderate); Z79.899 Other long term (current) drug therapy; R51 Headache
CPT/HCPCS: 36415; 80048; 85027; L0625; 97110-GP; A9270-GY

== ENCOUNTER 2021-09-04 20:29 | Emergency (ER) | payer MEDICARE, OTHER ==
--- NOTE | 2021-09-04 20:32 | ERPHSYRPT ---
- History of Present Illness Time Seen by Provider: 09/04/21 20:31 Historian: patient Physician History: This is a morbidly obese white female patient of Dr. Michelet Morelos and health unit clerk Dr. Yang as well as hide sorter Dr. Ramon. The patient presents with what she is calling epigastric lower chest pain which is described as an ache or pressure that is mild and radiates around the right upper quadrant to her back. She has no nausea vomiting or diarrhea. Patient has a history of gastroesophageal reflux disease, elevated cholesterol, hypertension, [id number] diabetes and migraine headaches. In February 2021 patient had a pacemaker placed. Patient denies having a history of a myocardial infarction in the past. She has no shortness of breath. She has no abdominal pain. She denies fever and she denies cough Timing/Duration: today Activities at Onset: none Quality: aching Location: epigastric Chest Pain Radiation: back (Radiates right upper quadrant to the back.) Severity of Pain-Max: mild Severity of Pain-Current: mild Modifying Factors: Improves With: nothing Associated Symptoms: denies symptoms Nitro Today/Relief: no nitro taken today Aspirin Treatment Today: 81 mg x 4, provided by ED Allergies/Adverse Reactions: Sulfa (Sulfonamide Antibiotics) Allergy (Verified 09/04/21 20:31) varicella-zoster immune globulin (h [varicella-zoster immune glob] Adverse Reaction (Intermediate, Verified 09/04/21 20:31) rash and sore bones Home Medications: Magnesium Oxide 400 mg PO DAILY 02/19/19 [History] Solifenacin Succinate 10 mg PO DAILY 02/19/19 [History] Spironolactone 25 mg PO DAILY 02/19/19 [History] PANTOPRAZOLE 40 mg Tablet [Protonix 40MG Tablet] 40 mg PO QAM 03/17/19 [History] Atorvastatin Calcium 20 mg PO DAILY 09/04/21 [History] Metformin HCl 500 mg [Glucophage 500 MG] 500 mg PO DAILY 09/04/21 [History] Hx Tetanus, Diphtheria Vaccination/Date Given: Yes Hx Influenza Vaccination/Date Given: Yes Hx Pneumococcal Vaccination/Date Given: Yes Travel Risk - International Travel Have you traveled outside of the country in past 3 weeks: No - Coronavirus Screening Are you exhibiting any of the following symptoms?: No Close contact with a COVID-19 positive Pt in past 14-21 Days: No - Review of Systems Constitutional: No Symptoms Eyes: No Symptoms Ears, Nose, & Throat: No Symptoms, Throat Swelling Cardiac: Chest Pain Abdominal/Gastrointestinal: No Symptoms Genitourinary Symptoms: Incontinence Musculoskeletal: No Symptoms Skin: No Symptoms Neurological: No Symptoms Psychological: No Symptoms Endocrine: No Symptoms Hematologic/Lymphatic: No Symptoms Immunological/Allergic: No Symptoms All Other Systems: Reviewed and Negative - Past Medical History Pertinent Past Medical History: Yes Neurological History: Migraines ENT History: No Pertinent History Cardiac History: High Cholesterol, Hypertension Respiratory History: Bronchitis, Other Endocrine Medical History: No Pertinent History Musculoskeletal History: No Pertinent History GI Medical History: GERD, Gallbladder Disease History: Renal Disease Psycho-Social History: No Pertinent History Female Reproductive Disorders: Fibroids, Other - Past Surgical History Past Surgical History: Yes Neuro Surgical History: No Pertinent History Cardiac: No Pertinent History Respiratory: No Pertinent History Gastrointestinal: Cholecystectomy, Colon Resection, Hernia Repair Genitourinary: No Pertinent History Musculoskeletal: No Pertinent History Female Surgical History: Hysterectomy Other Surgical History: TRANSVERSE COLECTOMY 03/11/19 - Social History Smoking Status: Never smoker Exposure to second hand smoke: No Drug Use: none Patient Lives Alone: Yes - Nursing Vital Signs Nursing Vital Signs: Initial Vital Signs Temperature 98.2 F 09/04/21 20:30 Pulse Rate 74 09/04/21 20:30 Respiratory Rate 18 09/04/21 20:30 Blood Pressure 167/79 09/04/21 20:30 O2 Sat by Pulse Oximetry 96 09/04/21 20:30 Pain Scale Pain Intensity 2 - Physical Exam General Appearance: no apparent distress, alert, anxiety, obese Eye Exam: PERRL/EOMI, eyes nml inspection Ears, Nose, Throat Exam: normal ENT inspection, moist mucous membranes Neck Exam: normal inspection, non-tender, supple, full range of motion Respiratory Exam: normal breath sounds, chest tenderness (Mild xiphoid process epigastric), lungs clear, airway intact, No respiratory distress Cardiovascular Exam: normal heart sounds, normal peripheral pulses, other (Atrial paced rhythm) Pelvic Exam: not done Rectal Exam: not done Back Exam: normal inspection, normal range of motion, No CVA tenderness, No vertebral tenderness Extremity Exam: normal inspection, normal range of motion, pelvis stable Neurologic Exam: alert, oriented x 3, cooperative, barrel liner II-XII nml as tested, normal mood/affect, nml cerebellar function, nml station & gait, sensation nml Skin Exam: normal color, warm, dry Lymphatic Exam: No adenopathy SpO2 Interpretation: normal O2 Delivery: Room Air - Course Nursing assessment & vital signs reviewed: Yes EKG Interpreted by Me: RATE (76), LAFB, Other (There are no acute ischemic changes on today's EKG. Comparison EKG was performed on 03/07/2019. This was prior to the pacemaker placement. 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 that are persistent today.) Ordered Tests: Active Orders 24 hr Category Date Time Status Piano Regulator Inspector STAT Care 09/04/21 20:45 Active EKG-ER Only STAT Care 09/04/21 20:43 Active IV Insertion STAT Care 09/04/21 20:43 Active Pulse Oximetry (ED) STAT Care 09/04/21 20:43 Active CHEST 1 VIEW (PORTABLE) Stat Exams 09/04/21 20:43 Taken CBC W DIFF Stat Lab 09/04/21 21:30 Completed CMP Stat Lab 09/04/21 21:30 Completed D-DIMER QUANTITATIVE Stat Lab 09/04/21 21:30 Completed NT PRO BNP Stat Lab 09/04/21 21:30 Completed PROTIME WITH INR Stat Lab 09/04/21 21:30 Completed TROPONIN Q3H Lab 09/04/21 21:30 Completed TROPONIN Q3H Lab 09/04/21 23:45 Ordered TROPONIN Q3H Lab 09/05/21 02:45 Ordered TROPONIN Q3H Lab 09/05/21 05:45 Ordered TROPONIN Q3H Lab 09/05/21 08:45 Ordered Medication Summary Discontinued Medications Generic Name Dose Route Start Last Admin Trade Name Freq PRN Reason Stop Dose Admin Aspirin 324 mg 09/04/21 20:43 09/04/21 20:46 Aspirin 81 Mg Tab.Chew PO 09/04/21 20:44 324 mg STAT ONE Administration Lab/Rad Data: Laboratory Result Diagrams 09/04/21 21:30 09/04/21 21:30 Laboratory Results 09/04/21 09/04/21 09/04/21 Range/Units 21:30 21:30 21:30 WBC (4.0-10.5) K/mm3 RBC (4.1-5.4) M/mm3 Hgb (12.0-16.0) gm/dl Hct (35-47) % MCV (78-100) fl MCH (26-32) pg MCHC (32-36) g/dl RDW (11.5-14.0) % Plt Count (150-450) K/mm3 MPV (7.5-11.0) fl Gran % (36.0-66.0) % Eos # (Auto) (0-0.5) Absolute Lymphs (auto) (1.0-4.6) Absolute Monos (auto) (0.0-1.3) Lymphocytes % (24.0-44.0) % Monocytes % (0.0-12.0) % Eosinophils % (0.00-5.0) % Basophils % (0.0-0.4) % Absolute Granulocytes (1.4-6.9) Basophils # (0-0.4) PT 11.9 (9.4-12.5) SECONDS INR 1.01 (0.8-3.0) D-Dimer 3940 H* (215-500) ng/mL Sodium 136 L (137-145) mmol/L Potassium 4.2 (3.5-5.1) mmol/L Chloride 105 (98-107) mmol/L Carbon Dioxide 25 (22-30) mmol/L Anion Gap 10.6 (5-15) MEQ/L BUN 20 H (7-17) mg/dL Creatinine 1.52 H (0.52-1.04) mg/dL Estimated GFR 35.4 ML/MIN Glucose 112 H (74-106) mg/dL Calcium 9.3 (8.4-10.2) mg/dL Total Bilirubin 0.40 (0.2-1.3) mg/dL AST 33 (14-36) U/L ALT 40 H (0-35) U/L Alkaline Phosphatase 105 (38-126) U/L Troponin I < 0.012 (0.000-0.034) ng/mL NT-Pro-B Natriuret Pep 238 (0-1800) pg/mL Serum Total Protein 6.2 L (6.3-8.2) g/dL Albumin 3.8 (3.5-5.0) g/dL 09/04/21 Range/Units 21:30 WBC 6.1 (4.0-10.5) K/mm3 RBC 4.33 (4.1-5.4) M/mm3 Hgb 12.7 (12.0-16.0) gm/dl Hct 39.8 (35-47) % MCV 91.9 (78-100) fl MCH 29.3 (26-32) pg MCHC 31.9 L (32-36) g/dl RDW 12.8 (11.5-14.0) % Plt Count 237 (150-450) K/mm3 MPV 9.2 (7.5-11.0) fl Gran % 61.0 (36.0-66.0) % Eos # (Auto) 0.25 (0-0.5) Absolute Lymphs (auto) 1.59 (1.0-4.6) Absolute Monos (auto) 0.52 (0.0-1.3) Lymphocytes % 25.9 (24.0-44.0) % Monocytes % 8.5 (0.0-12.0) % Eosinophils % 4.1 (0.00-5.0) % Basophils % 0.5 (0.0-0.4) % Absolute Granulocytes 3.75 (1.4-6.9) Basophils # 0.03 (0-0.4) PT (9.4-12.5) SECONDS INR (0.8-3.0) D-Dimer (215-500) ng/mL Sodium (137-145) mmol/L Potassium (3.5-5.1) mmol/L Chloride (98-107) mmol/L Carbon Dioxide (22-30) mmol/L Anion Gap (5-15) MEQ/L BUN (7-17) mg/dL Creatinine (0.52-1.04) mg/dL Estimated GFR ML/MIN Glucose (74-106) mg/dL Calcium (8.4-10.2) mg/dL Total Bilirubin (0.2-1.3) mg/dL AST (14-36) U/L ALT (0-35) U/L Alkaline Phosphatase (38-126) U/L Troponin I (0.000-0.034) ng/mL NT-Pro-B Natriuret Pep (0-1800) pg/mL Serum Total Protein (6.3-8.2) g/dL Albumin (3.5-5.0) g/dL - Progress Progress: improved, re-examined Air Movement: good Progress Note: 09/04/21 22:17 Medical decision making: This patient has chronic marginal at best renal function. I do not feel that we will be able to increase her GFR to 50 with IV hydration but we will attempt to do that. I did speak with Dr. Michelet Morelos about bring her in the hospital and making arrangements for a nuclear medicine VQ scan. However, radiology states that they were here today and nuclear medicine will not return to this hospital until . We will contact [facility] or another local facility to see if we can make arrangements for brief transfer an outpatient VQ scan tomorrow. In the meantime the plan w ill be to provide her with Lovenox 90 mg subcu every 12 hours. 09/04/21 22:41 Medical decision making I contacted Dr. Michelet Morelos again. We do not have nuclear medicine available till 09/07/2021. Therefore, the patient will receive Lovenox 90 mg subcutaneously now. She will then call Dr. Michelet Morelos's office first thing in the morning at 830. Dr. Michelet Morelos is going to make arrangements for outpatient V/Q scan and Dr. Michelet Morelos stated she will write prescriptions for more subcutaneous Lovenox. Blood Culture(s) Obtained: No Antibiotics given: No Discussed with : Beverley Counseled pt/family regarding: lab results, diagnosis, need for follow-up, rad results - Departure Departure Disposition: Home Clinical Impression: Chest pain, Elevated d-dimer, Renal insufficiency Condition: Stable Critical Care Time: No Referrals: BANDAR ESTRADA [Primary Care Provider] - Follow up/PCP as directed Additional Instructions: Call Dr. Michelet Morelos's office tomorrow morning at 830. Dr. Michelet Morelos is going to write a prescription for more blood thinning medication (Lovenox). In addition, she is going to make arrangements for ear outpatient nuclear medicine test.
[2021-09-04] MEDS ORDERED: BABY ASPIRIN 81 MG CHEW PO ONE (20:43)
[2021-09-04 21:38] LABS: Absolute Neutrophil Ct (ANC) 3.75 (1.4-6.9); BASOPHIL % 0.5 % (0.0-0.4); Basophil (Absolute #) 0.03 (0-0.4); Eosinophil % 4.1 % (0.00-5.0); Eosinophil (Absolute #) 0.25 (0-0.5); Hematocrit 39.8 % (35-47); Hemoglobin 12.7 gm/dl (12.0-16.0); Lymphocyte (Absolute #) 1.59 (1.0-4.6); Lymphocytes % 25.9 % (24.0-44.0); Mean Cell Volume 91.9 fl (78-100); Mean Corpuscular Hemoglobin 29.3 pg (26-32); Mean Corpuscular Hgb Concent. 31.9 g/dl (32-36); Mean Platelet Volume 9.2 fl (7.5-11.0); Monocyte (Absolute #) 0.52 (0.0-1.3); Monocytes % 8.5 % (0.0-12.0); Platelet Count 237 K/mm3 (150-450); Red Blood Count 4.33 M/mm3 (4.1-5.4); Red Cell Distribution Width 12.8 % (11.5-14.0); White Blood Count 6.1 K/mm3 (4.0-10.5)
[2021-09-04 21:49] LABS: INR 1.01 (0.8-3.0); PROTIME 11.9 SECONDS (9.4-12.5)
[2021-09-04 22:03] LABS: ALBUMIN 3.8 g/dL (3.5-5.0); ANION GAP 10.6 MEQ/L (5-15); BILIRUBIN,TOTAL 0.4 mg/dL (0.2-1.3); Calcium 9.3 mg/dL (8.4-10.2); Creatinine 1 1.52 mg/dL (0.52-1.04); EST GLOMERULAR FILTRATION RATE 35.4 ML/MIN; Potassium 4.2 mmol/L (3.5-5.1); Total Protein 6.2 g/dL (6.3-8.2)
[2021-09-04 22:21] VITALS: BP 131/69; PULSE 62; O2SAT 95
[2021-09-04] MEDS ORDERED: ENOXAPARIN SODIUM SQ STA (22:40)
[2021-09-04] MEDS ORDERED: ENOXAPARIN SODIUM SQ ONE (22:43)
--- NOTE | 2021-09-05 09:02 | XRAY ---
Indication: Chest pain. Comparison: March 31, 2021. Portable chest less inflated with new moderate left base infiltrate/atelectasis/effusion and new minimal right base subsegmental atelectasis/scarring. Heart not enlarged with new left dual-lead pacemaker. Bony thorax intact again with mild osteopenia and degenerative changes.
== END 2021-09-04 23:02 | disposition home or self-care (01) ==
LOC: ED 20:29
DX: R07.9 Chest pain, unspecified (principal); R79.1 Abnormal coagulation profile; E11.22 Type 2 diabetes mellitus with diabetic chronic kidney disease; I12.9 Hypertensive chronic kidney disease with stage 1 through stage 4 chronic kidney disease, or unspecified chronic kidney disease; N18.9 Chronic kidney disease, unspecified; K21.9 Gastro-esophageal reflux disease without esophagitis; E78.5 Hyperlipidemia, unspecified; I10 Essential (primary) hypertension; Z79.84 Long term (current) use of oral hypoglycemic drugs
CPT/HCPCS: 36000; 36415; 71045; 80053; 83880; 84484; 85025; 85379; 85610; 93005; 93041; 94760; 96372; 99284; J1650; A9270-GY

== ENCOUNTER 2022-05-29 09:23 | Day surgery (SDC) | payer MEDICARE, OTHER ==
[~2022-05-29 09:23] MED LIST: Lactated Ringers 1,000 ML IV ONE
[2022-05-29] MEDS ORDERED: cefUROXime sodium 0.005 GM in Sodium Chloride Flush 30 ML*** 0.5 ML IJ ONE (09:30)
[2022-05-29] MEDS ORDERED: Lactated Ringers 1,000 ML IV SCH (09:30)
[2022-05-29] MEDS ORDERED: TETRACAINE 0.5% STERI-UNIT SOL OP ONE ×2 (09:30)
[2022-05-29] MEDS ORDERED: Ak-Dilate OPHTHALMIC*** 1.065 ML, Cyclogyl 1% OPHTH SOL 1.065 ML, GATIFLOXACIN 0.5% OPH... OP ONE ×4 (09:30)
[2022-05-29] MEDS ORDERED: NON-FORMULARY ITEM OP ONE (09:30)
[2022-05-29] MEDS ORDERED: BETADINE 5% OPHTHALMIC 30 ML OP ONE (09:30)
[2022-05-29] MEDS ORDERED: DIPRIVAN 200 MG/20 ML IV ONE (12:07)
[2022-05-29] MEDS ORDERED: SUBLIMAZE 100 MCG/2 ML ONE (12:07)
[2022-05-29] MEDS ORDERED: Xylocaine-Mpf 2% 5 Ml Vial ONE (12:07)
[2022-05-29] MEDS ORDERED: Versed 2 MG/2 ML Injection ONE (12:08)
[2022-05-29 12:50] VITALS: O2SAT 94
[2022-05-29 12:59] VITALS: BP 161/69; PULSE 63
[2022-05-29] MEDS ORDERED: Zofran 4 MG/2 ML VIAL IV PRN (13:00)
[2022-05-29] MEDS ORDERED: Epinephrine Preservative Free 1 MG/ML IJ ONE (15:00)
[2022-05-29] MEDS ORDERED: LIDOCAINE HCL 1% 50 MG/5 ML VL PF IJ ONE (15:00)
== END 2022-05-29 13:15 | disposition home or self-care (01) ==
LOC: SDC 09:23
PROVIDERS: ATTEND Ophthalmology
DX: H25.812 Combined forms of age-related cataract, left eye (principal)
CPT/HCPCS: 99100; C1780; J0171; J2001; J2250; J2704; J3010; A9270-GY

== ENCOUNTER 2022-07-24 08:07 | Day surgery (SDC) | payer MEDICARE, OTHER ==
[2022-07-24] MEDS ORDERED: Epinephrine Preservative Free 1 MG/ML IJ ONE (08:08)
[2022-07-24] MEDS ORDERED: LIDOCAINE HCL 1% 50 MG/5 ML VL PF IJ ONE (08:08)
[2022-07-24] MEDS ORDERED: Ak-Dilate OPHTHALMIC*** 1.065 ML, Cyclogyl 1% OPHTH SOL 1.065 ML, GATIFLOXACIN 0.5% OPH... OP ONE ×4 (08:15)
[2022-07-24] MEDS ORDERED: TETRACAINE 0.5% STERI-UNIT SOL OP ONE ×2 (08:15)
[2022-07-24] MEDS ORDERED: NON-FORMULARY ITEM IJ ONE (08:15)
[2022-07-24] MEDS ORDERED: Lactated Ringers 1,000 ML IV SCH (08:15)
[2022-07-24] MEDS ORDERED: BETADINE 5% OPHTHALMIC 30 ML OP ONE (08:15)
[2022-07-24] MEDS ORDERED: cefUROXime sodium 0.005 GM in Sodium Chloride Flush 30 ML*** 0.5 ML IJ ONE (08:15)
[2022-07-24] MEDS ORDERED: NON-FORMULARY ITEM OP ONE (08:15)
[2022-07-24] MEDS ORDERED: Lactated Ringers 1,000 ML IV ONE (08:41)
[2022-07-24] MEDS ORDERED: DIPRIVAN 200 MG/20 ML IV ONE (10:08)
[2022-07-24] MEDS ORDERED: Zofran 4 MG/2 ML VIAL IV PRN (10:15)
[2022-07-24] MEDS ORDERED: SUBLIMAZE 100 MCG/2 ML ONE (10:26)
[2022-07-24 10:47] VITALS: BP 112/89; PULSE 60; O2SAT 94
== END 2022-07-24 10:56 | disposition home or self-care (01) ==
LOC: SDC 08:07
PROVIDERS: ATTEND Ophthalmology
DX: H25.811 Combined forms of age-related cataract, right eye (principal); E11.9 Type 2 diabetes mellitus without complications
CPT/HCPCS: 82947; 99100; C1780; J0171; J2001; J2704; J3010; A9270-GY

== ENCOUNTER 2022-10-31 09:15 | Emergency (ER) | payer MEDICARE, OTHER ==
--- NOTE | 2022-10-31 09:52 | ERPHSYRPT ---
- History of Present Illness Time Seen by Provider: 10/31/22 09:20 Source: patient Exam Limitations: no limitations Patient Subjective Stated Complaint: Pt states "I took my blood pressure was up this morning and I took it 3 times and it stayed elevated so I called my DrJerardo and they said to come here." Triage Nursing Assessment: Pt presented alert and oriented x 3, skin pwd. Pt ambulates with an upright steady gait, able to speak in clear full sentences. PT in no apparent respiratory distress. Physician History: Patient here with asymptomatic hypertension. Patient states that she was at home today. Took her blood pressure several times. It is all elevated. She had no symptoms. No chest pain, shortness of breath, nausea, vomiting, other atypical symptoms of cardiac disease. Patient states that she does have end- stage kidney disease. However, she is not on any dialysis. Patient states that she does not want to go on dialysis. Patient called her PCP about her elevated blood pressures. And they sent her here. Timing/Duration: today Severity: moderate Allergies/Adverse Reactions: Sulfa (Sulfonamide Antibiotics) Allergy (Verified 07/17/22 12:13) varicella-zoster immune globulin (h [varicella-zoster immune glob] Adverse Reaction (Intermediate, Verified 07/17/22 12:13) rash and sore bones Home Medications: Solifenacin Succinate 10 mg PO DAILY 02/19/19 [History] Acetaminophen 500 mg [Tylenol Extra Strength 500 mg] 500 mg PO DAILY PRN PRN 05/17/22 [History] Cetirizine HCl [Allergy Relief] 10 mg PO DAILY 05/17/22 [History] Ergocalciferol (Vitamin D2) [Vitamin D2] 1 tab PO UD 05/17/22 [History] Famotidine 20 mg [Pepcid 20 MG] 20 mg PO DAILY PRN PRN 05/17/22 [History] Folic Acid/Vit B Complex and C [Super B Complex-Vit C Caplet] 1 tab PO DAILY 05/17/22 [History] Lisinopril 5 mg [Zestril 5 MG] 2.5 mg PO DAILY 05/17/22 [History] Alpha Lipoic Acid 100 mg PO UD 07/17/22 [History] Hx Tetanus, Diphtheria Vaccination/Date Given: Yes Hx Influenza Vaccination/Date Given: Yes Hx Pneumococcal Vaccination/Date Given: Yes Immunizations Up to Date: Yes Travel Risk - International Travel Have you traveled outside of the country in past 3 weeks: No - Coronavirus Screening Are you exhibiting any of the following symptoms?: No - Vaccine Status Have you recieved a Covid-19 vaccination: Yes 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 - Vaccination Dates Date of 2cond Vaccination (if applicable): 11/14/2020 - Review of Systems Constitutional: No Fever, No Chills Eyes: No Symptoms Ears, Nose, & Throat: No Symptoms Respiratory: No Cough, No Dyspnea Cardiac: No Chest Pain, No Edema, No Syncope Abdominal/Gastrointestinal: No Abdominal Pain, No Nausea, No Vomiting, No Diarrhea Genitourinary Symptoms: No Dysuria Musculoskeletal: No Back Pain, No Neck Pain Skin: No Rash Neurological: No Dizziness, No Focal Weakness, No Sensory Changes Psychological: No Symptoms Endocrine: No Symptoms All Other Systems: Reviewed and Negative - Past Medical History Pertinent Past Medical History: Yes Neurological History: Migraines ENT History: Cataracts Cardiac History: High Cholesterol, Hypertension, Other Respiratory History: Bronchitis, Other Endocrine Medical History: No Pertinent History Musculoskeletal History: No Pertinent History GI Medical History: GERD, Gallbladder Disease History: Renal Disease Psycho-Social History: No Pertinent History Female Reproductive Disorders: Fibroids, Other Other Medical History: Stage 4 renal failure - Past Surgical History Past Surgical History: Yes Neuro Surgical History: No Pertinent History Cardiac: No Pertinent History, Pacemaker Respiratory: No Pertinent History Gastrointestinal: Cholecystectomy, Colon Resection, Hernia Repair Genitourinary: No Pertinent History Musculoskeletal: No Pertinent History Female Surgical History: Hysterectomy Other Surgical History: TRANSVERSE COLECTOMY 03/11/19,pacemaker - Social History Smoking Status: Never smoker Exposure to second hand smoke: Yes Drug Use: none Patient Lives Alone: Yes - Nursing Vital Signs Nursing Vital Signs: Initial Vital Signs Temperature 97.5 F 10/31/22 09:20 Pulse Rate 84 10/31/22 09:20 Respiratory Rate 20 10/31/22 09:20 Blood Pressure 152/95 10/31/22 09:20 O2 Sat by Pulse Oximetry 97 10/31/22 09:20 Pain Scale Pain Intensity 5 - Physical Exam General Appearance: no apparent distress, alert Eye Exam: PERRL/EOMI, eyes nml inspection Ears, Nose, Throat Exam: normal ENT inspection, TMs normal, pharynx normal, moist mucous membranes Neck Exam: normal inspection, non-tender, supple, full range of motion Respiratory Exam: normal breath sounds, lungs clear, No respiratory distress Cardiovascular Exam: regular rate/rhythm, normal heart sounds, normal peripheral pulses Gastrointestinal/Abdomen Exam: soft, normal bowel sounds, No tenderness, No mass Back Exam: normal inspection, normal range of motion, No CVA tenderness, No vertebral tenderness Extremity Exam: normal inspection, normal range of motion, pelvis stable Neurologic Exam: alert, oriented x 3, cooperative, normal mood/affect, nml cerebellar function, nml station & gait, sensation nml, No motor deficits Skin Exam: normal color, warm, dry, No rash Lymphatic Exam: No adenopathy SpO2: 97 - Course Nursing assessment & vital signs reviewed: Yes EKG Interpreted by Me: Sinus Rhythm (No ischemic changes) Ordered Tests: Active Orders 24 hr Category Date Time Status EKG-ER Only STAT Care 10/31/22 09:33 Active IV Insertion STAT Care 10/31/22 09:33 Active CHEST 2 VIEWS (PA AND LAT) Stat Exams 10/31/22 09:45 Completed CBC W DIFF Stat Lab 10/31/22 09:56 Completed CMP Stat Lab 10/31/22 09:56 Completed NT PRO BNPII Stat Lab 10/31/22 09:56 Completed TROPONIN Q4H Lab 10/31/22 09:56 Completed TROPONIN Q4H Lab 10/31/22 13:45 Ordered TROPONIN Q4H Lab 10/31/22 17:45 Ordered Medication Summary Discontinued Medications Generic Name Dose Route Start Last Admin Trade Name Meryl PRN Reason Stop Dose Admin Aspirin 324 mg 10/31/22 09:33 10/31/22 10:26 Aspirin 81 Mg Tab.Chew PO 10/31/22 09:34 324 mg STAT ONE Administration Aspirin Confirm 10/31/22 10:23 Aspirin 81 Mg Tab.Chew Administered 10/31/22 10:24 Dose 324 mg .ROUTE .STK-MED ONE Lab/Rad Data: Laboratory Result Diagrams 10/31/22 09:56 10/31/22 09:56 Laboratory Results 10/31/22 10/31/22 10/31/22 Range/Units 09:56 09:56 09:56 WBC 5.5 (4.0-10.5) x10^3/uL RBC 4.75 (4.1-5.4) x10^6/uL Hgb 13.8 (12.0-16.0) g/dL Hct 42.3 (35-47) % MCV 89.1 (78-100) fL MCH 29.1 (26-32) pg MCHC 32.6 (32-36) g/dL RDW 13.0 (11.5-14.0) % Plt Count 213 (150-450) x10^3/uL MPV 9.3 (7.5-11.0) fL Gran % 69.3 H (36.0-66.0) % Immature Gran % (Auto) 0.2 (0.00-0.4) % Nucleat RBC Rel Count 0.0 (0.00-0.1) % Eos # (Auto) 0.12 (0-0.5) x10^3/uL Immature Gran # (Auto) 0.01 (0.00-0.03) x10^3u/L Absolute Lymphs (auto) 1.09 (1.0-4.6) x10^3/uL Absolute Monos (auto) 0.44 (0.0-1.3) x10^3/uL Absolute Nucleated RBC 0.00 (0.00-0.01) x10^3u/L Lymphocytes % 19.8 L (24.0-44.0) % Monocytes % 8.0 (0.0-12.0) % Eosinophils % 2.2 (0.00-5.0) % Basophils % 0.5 (0.0-0.4) % Absolute Granulocytes 3.81 (1.4-6.9) x10^3/uL Basophils # 0.03 (0-0.4) x10^3/uL Sodium 140 (137-145) mmol/L Potassium 4.5 (3.5-5.1) mmol/L Chloride 107 (98-107) mmol/L Carbon Dioxide 24 (22-30) mmol/L Anion Gap 13.7 (5-15) MEQ/L BUN 26 H (7-17) mg/dL Creatinine 1.35 H (0.52-1.04) mg/dL Estimated GFR 40.5 ML/MIN Glucose 127 H (74-106) mg/dL Calcium 9.8 (8.4-10.2) mg/dL Total Bilirubin 0.50 (0.2-1.3) mg/dL AST 32 (14-36) U/L ALT 43 H (0-35) U/L Alkaline Phosphatase 97 (38-126) U/L Troponin I < 0.012 (0.000-0.034) ng/mL NT-Pro-B Natriuret Pep 81.5 (<300) pg/mL Serum Total Protein 7.2 (6.3-8.2) g/dL Albumin 4.4 (3.5-5.0) g/dL - Progress Progress: improved Progress Note: 10/31/22 09:50 differential diagnosis includes: PNA, STEMI, NSTEMI, other infection, musculoskeletal pain, pneumothorax - We'll obtain basic labs, fluids, EKG, troponin, chest x-ray - I feel comfortable with one time negative troponin given symptoms have improved and started greater then 6 hours ago. - EKG shows no ST changes - my read. See full read below. - O2 saturations consistently greater than 95%. - CXR shows no pneumonia, pneumothorax - my read - no other obvious lab abnormalities 10/31/22 11:30 Patient feels much improved. Patient was observed here. Patient's blood pressure came down without any intervention. Most likely asymptomatic hypertension. She will follow-up with her PCP for repeat blood pressure check tomorrow. Patient will return here sooner for new or changing symptoms. Discussed with : Mehul Counseled pt/family regarding: lab results, diagnosis, need for follow-up, rad results - Departure Departure Disposition: Home Clinical Impression: Hypertension Condition: Stable Critical Care Time: No Referrals: BANDAR ESTRADA [Primary Care Provider] - Follow up/PCP as directed Instructions: Chronic Kidney Disease
--- NOTE | 2022-10-31 09:57 | XRAY ---
Indication: Short of breath. Hypertension. Comparison: September 07, 2021 PA/lateral chest again hyperinflated and clear with a few incidental calcified granulomas. Heart not enlarged again with left dual-lead pacemaker. Bony thorax intact again with osteopenia, mild degenerative changes, and minimal levoscoliosis. Impression: Continued nonacute hyperinflated chest with chronic features.
[2022-10-31] MEDS ORDERED: BABY ASPIRIN 81 MG CHEW ONE (10:23)
[2022-10-31] MEDS: BABY ASPIRIN 81 MG CHEW PO ONE (10:26)
[2022-10-31 10:28] LABS: Absolute Neutrophil Ct (ANC) 3.81 x10^3/uL (1.4-6.9); BASOPHIL % 0.5 % (0.0-0.4); Basophil (Absolute #) 0.03 x10^3/uL (0-0.4); Eosinophil % 2.2 % (0.00-5.0); Eosinophil (Absolute #) 0.12 x10^3/uL (0-0.5); Hematocrit 42.3 % (35-47); Hemoglobin 13.8 g/dL (12.0-16.0); IMMATURE GRAN # 0.01 x10^3u/L (0.00-0.03); IMMATURE GRAN % 0.2 % (0.00-0.4); Lymphocyte (Absolute #) 1.09 x10^3/uL (1.0-4.6); Lymphocytes % 19.8 % (24.0-44.0); Mean Cell Volume 89.1 fL (78-100); Mean Corpuscular Hemoglobin 29.1 pg (26-32); Mean Corpuscular Hgb Concent. 32.6 g/dL (32-36); Mean Platelet Volume 9.3 fL (7.5-11.0); Monocyte (Absolute #) 0.44 x10^3/uL (0.0-1.3); Neutrophil % 69.3 % (36.0-66.0); Platelet Count 213 x10^3/uL (150-450); Red Blood Count 4.75 x10^6/uL (4.1-5.4); White Blood Count 5.5 x10^3/uL (4.0-10.5)
[2022-10-31 10:48] LABS: ALBUMIN 4.4 g/dL (3.5-5.0); ANION GAP 13.7 MEQ/L (5-15); BILIRUBIN,TOTAL 0.5 mg/dL (0.2-1.3); Calcium 9.8 mg/dL (8.4-10.2); Creatinine 1 1.35 mg/dL (0.52-1.04); EST GLOMERULAR FILTRATION RATE 40.5 ML/MIN; Potassium 4.5 mmol/L (3.5-5.1); Total Protein 7.2 g/dL (6.3-8.2)
[2022-10-31 10:59] LABS: NT PRO BNPII 81.5 pg/mL (<300)
[2022-10-31 11:28] VITALS: BP 147/67; PULSE 61
[2022-10-31 11:31] VITALS: O2SAT 97
== END 2022-10-31 11:35 | disposition home or self-care (01) ==
LOC: ED 09:15
DX: I12.9 Hypertensive chronic kidney disease with stage 1 through stage 4 chronic kidney disease, or unspecified chronic kidney disease (principal); N18.4 Chronic kidney disease, stage 4 (severe); E78.5 Hyperlipidemia, unspecified; Z79.899 Other long term (current) drug therapy
CPT/HCPCS: 36000; 36415; 71046; 80053; 83880; 84484; 85025; 93005; 99284; A9270-GY